=== PATIENT | female | born 1965 | race Caucasian/White ===

== ENCOUNTER 2018-09-28 16:51 | Emergency (ER) | payer MEDICARE, OTHER ==
[~2018-09-28] VITALS: Ht 149.9 cm; Wt 61.7 kg
[2018-09-28] MEDS ORDERED: ELIQUIS5 MG PO (17:21)
[2018-09-28] MEDS ORDERED: CARV25 PO (17:21)
[2018-09-28] MEDS ORDERED: CLOP75 PO (17:22)
[2018-09-28] MEDS ORDERED: BUME1 PO (17:22)
[2018-09-28] MEDS ORDERED: Cymbalta60 MG PO (17:22)
[2018-09-28] MEDS ORDERED: GABA300 PO (17:23)
[2018-09-28] MEDS ORDERED: Isosorbide Mono30 MG PO (17:25)
[2018-09-28] MEDS ORDERED: LISI20 PO (17:25)
[2018-09-28] MEDS ORDERED: MGO400 MG PO (17:26)
[2018-09-28] MEDS ORDERED: MEXI200 PO (17:26)
[2018-09-28] MEDS ORDERED: POTCHL20ER PO (17:26)
[2018-09-28] MEDS ORDERED: SENN187 PO (17:27)
[2018-09-28] MEDS ORDERED: Pravachol40 MG PO (17:27)
[2018-09-28 17:28] LABS: BASOPHILS ABSOLUTE AUTO 0.05 K/mm3 (0.00-0.23); BASOPHILS PERCENT AUTO 1 % (0-2); EOSINOPHILS PERCENT AUTO 2 % (0-6); Hematocrit 39.7 % (33.0-51.0); Hemoglobin 12.4 g/dL (11.5-16.0); IMMATURE GRAN ABSOLUTE AUTO 0.04 K/mm3 (0.00-0.10); IMMATURE GRAN PERCENT AUTO 0 % (0-1); LYMPHOCYTES ABSOLUTE AUTO 2.36 K/mm3 (0.84-5.20); LYMPHOCYTES PERCENT AUTO 21 % (21-46); MONOCYTES ABSOLUTE AUTO 1.12 K/mm3 (0.16-1.47); MONOCYTES PERCENT AUTO 10 % (4-13); Mean Corpuscular HGB Conc 31.2 g/dL (31.5-36.5); Mean Corpuscular Volume 93 fL (80-100); Mean Platelet Volume 9.3 fL (9.1-12.4); NEUTROPHILS ABSOLUTE AUTO 7.32 K/mm3 (1.96-9.15); NEUTROPHILS PERCENT AUTO 66 % (41-73); Platelet Count 348 K/mm3 (150-400); RDW Standard Deviation 43.9 fL (35.1-46.3); Red Blood Cell Count 4.28 M/mm3 (3.80-5.20); White Blood Cell Count 11.09 K/mm3 (4.00-11.30)
[2018-09-28] MEDS ORDERED: SPIR25 PO (17:28)
[2018-09-28] MEDS ORDERED: DIAZ5 PO (17:28)
[2018-09-28] MEDS ORDERED: ZIPR60 PO (17:28)
[2018-09-28] MEDS ORDERED: Xyzal5 MG (17:28)
[2018-09-28] MEDS ORDERED: VARE1 PO (17:29)
[2018-09-28 17:36] LABS: Source, Urine Clean Catch
[2018-09-28 17:44] LABS: Bilirubin, Urine Neg (Neg); Blood, Urine 5+ (Neg); Glucose Qualitative, Urine 3+ (Neg); Ketones, Urine Neg (Neg); Leukocyte Esterase, Urine 3+ (Neg); Nitrite, Urine Neg (Neg); Protein, Urine 1+ (Neg); Urobilinogen, Urine NORM (Normal)
[2018-09-28 17:46] LABS: Albumin, Blood 3.4 g/dL (3.4-5.0); Albumin/Globulin Ratio 0.9 (0.8-1.8); Bilirubin, Total 0.4 mg/dL (0.1-1.0); Bun/Creatinine Ratio 20.2 (12.0-20.0); Calcium, Blood 8.4 mg/dL (8.5-10.1); Creatinine, Blood 1.09 mg/dL (0.40-1.00); Globulin, Blood 3.8 g/dL (2.2-4.0); Potassium, Blood 4.6 mmol/L (3.5-5.5); Total Protein, Blood 7.2 g/dL (6.4-8.2)
[2018-09-28 18:04] LABS: Appearance, Urine Clear (Clear); Color, Urine Yellow (P-Yellow)
[2018-09-28 18:08] LABS: White Blood Cells, Urine TNTC /hpf (0-5)
[2018-09-28 18:09] LABS: Bacteria Many /hpf; Red Blood Cells, Urine 25-50 /hpf (0-2); Squamous Epithelial Cells Few /hpf (Few)
[2018-09-28] MEDS ORDERED: Pyridium100 MG PO (18:36)
[2018-09-28] MEDS ORDERED: CEPH500 PO (18:36)
== END 2018-09-28 19:05 | disposition home or self-care (01) ==
LOC: ER 16:51
PROVIDERS: Emergency Medicine
DX: N30.91 Cystitis, unspecified with hematuria (principal); Z79.899 Other long term (current) drug therapy; Z87.891 Personal history of nicotine dependence
CPT/HCPCS: 80053; 81001; 85025; 87077; 87086; 87186; 99284

== ENCOUNTER 2019-09-26 10:25 | Emergency (ER) | payer OTHER ==
[~2019-09-26] VITALS: Ht 149.9 cm; Wt 62.6 kg
[~2019-09-26 10:25] MED LIST: BUME1 PO; CARV25 PO; CEPH500 PO; CLOP75 PO; Cymbalta60 MG PO; DIAZ5 PO; ELIQUIS5 MG PO; GABA300 PO; Isosorbide Mono30 MG PO; LISI20 PO; MEXI200 PO; MGO400 MG PO; POTCHL20ER PO; Pravachol40 MG PO; Pyridium100 MG PO; SENN187 PO; SPIR25 PO; VARE1 PO; Xyzal5 MG; ZIPR60 PO
== END 2019-09-26 12:57 | disposition home or self-care (01) ==
LOC: ER 10:25
DX: H11.32 Conjunctival hemorrhage, left eye (principal); N17.9 Acute kidney failure, unspecified; Z79.899 Other long term (current) drug therapy
CPT/HCPCS: 99283

== ENCOUNTER 2020-04-22 18:25 | Observation (INO) | payer OTHER ==
[~2020-04-22] VITALS: Ht 149.9 cm; Wt 67.6 kg
[~2020-04-22 18:25] MED LIST changes: +AMOCLA875 PO; +AZIT250 PO; +XYZAL5 MG PO; -Xyzal5 MG
[2020-04-22 19:13] LABS: BASOPHILS ABSOLUTE AUTO 0.08 K/mm3 (0.00-0.23); BASOPHILS PERCENT AUTO 1 % (0-2); EOSINOPHILS ABSOLUTE AUTO 0.32 K/mm3 (0.00-0.68); EOSINOPHILS PERCENT AUTO 4 % (0-6); Hematocrit 44.7 % (33.0-51.0); Hemoglobin 13.8 g/dL (11.5-16.0); IMMATURE GRAN ABSOLUTE AUTO 0.02 K/mm3 (0.00-0.10); IMMATURE GRAN PERCENT AUTO 0 % (0-1); LYMPHOCYTES ABSOLUTE AUTO 2.33 K/mm3 (0.84-5.20); LYMPHOCYTES PERCENT AUTO 28 % (21-46); MONOCYTES ABSOLUTE AUTO 0.91 K/mm3 (0.16-1.47); MONOCYTES PERCENT AUTO 11 % (4-13); Mean Corpuscular HGB 27.7 pg (26.0-34.0); Mean Corpuscular HGB Conc 30.9 g/dL (31.5-36.5); Mean Corpuscular Volume 90 fL (80-100); Mean Platelet Volume 9.4 fL (9.1-12.4); NEUTROPHILS ABSOLUTE AUTO 4.69 K/mm3 (1.96-9.15); NEUTROPHILS PERCENT AUTO 56 % (41-73); Platelet Count 326 K/mm3 (150-400); RDW Coefficient Variation 13.7 % (11.7-14.2); RDW Standard Deviation 44.4 fL (35.1-46.3); Red Blood Cell Count 4.99 M/mm3 (3.80-5.20); White Blood Cell Count 8.35 K/mm3 (4.00-11.30)
[2020-04-22 19:34] LABS: Alanine Aminotransfer (ALT/SGP 32 U/L (12-78); Albumin, Blood 3.6 g/dL (3.4-5.0); Albumin/Globulin Ratio 0.8 (0.8-1.8); Alk Phos 115 U/L (50-136); Anion Gap 5 mmol/L (6-16); Aspartate Aminotrans (AST/SGOT 13 U/L (12-37); Bilirubin, Total 0.4 mg/dL (0.1-1.0); Blood Urea Nitrogen 17 mg/dL (8-24); Bun/Creatinine Ratio 20.3 (12.0-20.0); CO2, Blood 32 mmol/L (21-32); Calcium, Blood 8.8 mg/dL (8.5-10.1); Chloride, Blood 103 mmol/L (98-108); Creatinine, Blood 0.84 mg/dL (0.40-1.00); Globulin, Blood 4.3 g/dL (2.2-4.0); Glomerular Filtration Rate >60 (60-); Glucose, Blood 115 mg/dL (70-99); Potassium, Blood 3.6 mmol/L (3.5-5.5); Sodium, Blood 140 mmol/L (136-145); Total Protein, Blood 7.9 g/dL (6.4-8.2); Troponin I <0.015 ng/mL (0.000-0.040)
[2020-04-23] MEDS ORDERED: ASPI81CH PO (01:49)
[2020-04-23] MEDS ORDERED: K-Dur 20 meq T20 MEQ PO (01:50)
[2020-04-23] MEDS ORDERED: [UNRECOGNIZED DRUG - SUPPLY] (02:28)
[2020-04-23] MEDS ORDERED: TORSE20 PO (02:28)
[2020-04-23] MEDS ORDERED: CYMBALTA30 M1 PO (02:28)
[2020-04-23] MEDS ORDERED: PLAVIX75 MG PO (02:28)
[2020-04-23] MEDS ORDERED: ROPINIROLE HCL0.5 MG PO (02:29)
[2020-04-23] MEDS ORDERED: COREG25 MG PO (02:29)
[2020-04-23 03:22] LABS: BASOPHILS ABSOLUTE AUTO 0.04 K/mm3 (0.00-0.23); BASOPHILS PERCENT AUTO 0 % (0-2); EOSINOPHILS ABSOLUTE AUTO 0.19 K/mm3 (0.00-0.68); EOSINOPHILS PERCENT AUTO 2 % (0-6); Hematocrit 42.7 % (33.0-51.0); Hemoglobin 12.8 g/dL (11.5-16.0); IMMATURE GRAN ABSOLUTE AUTO 0.02 K/mm3 (0.00-0.10); IMMATURE GRAN PERCENT AUTO 0 % (0-1); LYMPHOCYTES ABSOLUTE AUTO 1.96 K/mm3 (0.84-5.20); LYMPHOCYTES PERCENT AUTO 22 % (21-46); MONOCYTES ABSOLUTE AUTO 0.93 K/mm3 (0.16-1.47); MONOCYTES PERCENT AUTO 10 % (4-13); Mean Corpuscular HGB 27.2 pg (26.0-34.0); Mean Corpuscular Volume 91 fL (80-100); Mean Platelet Volume 9.7 fL (9.1-12.4); NEUTROPHILS ABSOLUTE AUTO 5.83 K/mm3 (1.96-9.15); NEUTROPHILS PERCENT AUTO 65 % (41-73); Platelet Count 265 K/mm3 (150-400); RDW Coefficient Variation 13.7 % (11.7-14.2); RDW Standard Deviation 45.5 fL (35.1-46.3); Red Blood Cell Count 4.71 M/mm3 (3.80-5.20); White Blood Cell Count 8.97 K/mm3 (4.00-11.30)
[2020-04-23 03:46] LABS: Alanine Aminotransfer (ALT/SGP 29 U/L (12-78); Albumin, Blood 3.1 g/dL (3.4-5.0); Albumin/Globulin Ratio 0.8 (0.8-1.8); Alk Phos 107 U/L (50-136); Anion Gap 5 mmol/L (6-16); Aspartate Aminotrans (AST/SGOT 15 U/L (12-37); Bilirubin, Total 0.5 mg/dL (0.1-1.0); Blood Urea Nitrogen 20 mg/dL (8-24); CO2, Blood 31 mmol/L (21-32); CPK Creatine Kinase 79 U/L (26-193); Calcium, Blood 8.2 mg/dL (8.5-10.1); Chloride, Blood 103 mmol/L (98-108); Creatinine, Blood 0.91 mg/dL (0.40-1.00); Globulin, Blood 3.9 g/dL (2.2-4.0); Glomerular Filtration Rate >60 (60-); Glucose, Blood 332 mg/dL (70-99); Sodium, Blood 139 mmol/L (136-145); Troponin I <0.015 ng/mL (0.000-0.040)
[2020-04-23] MEDS ORDERED: Flonase 0.05% N16 GM (03:56)
[2020-04-23] MEDS ORDERED: NOVOLOG FL100 UNIT/3 SC (03:59)
[2020-04-23] MEDS ORDERED: BASAGLAR K100 UNIT/1 SC (04:01)
--- NOTE | 2020-04-23 05:24 | NUR ---
04/23/20 0515 PT AND DAUGHTER SLEEPING WELL. HEART MONITOR STABLE AT SR IN THE 70'S. LABWORK GOOD EXCEPT BLOOD SUGAR IN LOW 300'S. O2 AT 2LPM VIA N/C. ECHO ORDERED FOR TODAY. MEDICATED ONCE ON MEDICAL FLOOR FOR STERNAL DISCOMFORT WITH GOOD RELIEF.
--- NOTE | 2020-04-23 10:41 | NUR ---
BIVICD DEVICE INTEROGATTED PER DR CISNEROS WITH [employer] REP PRESENT. RESULTS REPORTED TO DR CISNEROS
[2020-04-23 11:28] LABS: CPK Creatine Kinase 68 U/L (26-193); Troponin I <0.015 ng/mL (0.000-0.040)
--- NOTE | 2020-04-23 11:56 | NUR ---
CALLED [facility] AND INFORMED OF NEW URGENT REPROGRAM PACER ORDER
[2020-04-23] MEDS ORDERED: DULO30 PO (14:46)
[2020-04-23] MEDS ORDERED: CYCL10 PO (14:47)
[2020-04-23] MEDS ORDERED: ATOR20 PO (14:47)
[2020-04-23] MEDS ORDERED: IBUP600 PO (14:48)
[2020-04-23] MEDS ORDERED: Norco 5-325 Ta1 EACH PO (14:48)
[2020-04-23] MEDS ORDERED: ENTRESTO 49 MG1 EACH PO (14:49)
--- NOTE | 2020-04-23 15:48 | NUR ---
ADMIT: 04/22/20 DISCHARGE: 04/23/20 DX: Pericardial effusion CC: cpeabody ABNER CALL: Patient is legally deaf. Please contact Abigail Kline (Daughter in [phone] or Obie Olmos (son)- RESIDENCE: home- alone family lives 1 mile away. CAREGIVER: Abigail Olmos (licha), Family Member, Ama, Sister, Family Member, Serge, daughter, Child, DX: CAD, CHF, HTN, Deaf, see list DME: Needs shower chair. CCM: Referral 2020 HOME HEALTH: not home bound, safely walking on her own. no wounds or nurse needed. SUMMARY: Admit: 04/22/20 Discharge 04/23/20 Cardiology signed off, Dr Mcgraw discharge home. s/w patient through interpuator. I met with Abigail, caregiver and Tali in room. They are having challenges with a deaf lighted alarm system in her home and do not know who to call. Asked them to text me a picture, I would try to help. Tali wanting a shower chair, will insurance cover? left message for [facility] to call me. If insurance will cover I will have pcp order. Discussed care coordination and reviewed transition of care call for Sunday or Sunday. Call Abigail for abner. Abigail drove her home and will metal pickling equipment operator new meds. cp
[2020-04-23 16:46] LABS: CHOL/HDL RATIO 4.1; Cholesterol 167 mg/dL (50-200); HDL Cholesterol 41 mg/dL (>39); LDL/HDL RATIO 2.5; Low Density Lipoprotein Chol 104 mg/dL (0-110); Triglycerides 111 mg/dL (30-160); Very Low Density Lipoprot Chol 22 mg/dL (6-32)
--- NOTE | 2020-04-23 16:52 | NUR ---
DISCHARGE SUMMARY BIANKA WENT HOME WITH DAUGHTER BRAD. MEDS FAXED TO PHARMACY. CALLED DR URBINA AND GOT VERBAL ORDER FOR PT TO HAVE MEXILETINE 150MG TID #90 3 REFILLS. WRITTEN SCRIPT FOR NORCO GIVEN TO PT AND PUT IN THEIR DISCHARGE PACKET, COPY IN CHART. PIV REMOVED. HAD LOW CBG EARLIER, TREATED WITH OJ AND DR URBINA CALLED. HE ORDERED PT BE ON HOME 'WHEEL' THAT IS A MIX OF WHAT LISPRO TO GIVE AT [facility] THAT IS A MIX OF SLIDING SCALE INSULIN WITH CORRECTION INSULIN. PACER INTERROGATED PRIOR TO DISCHARGE. DR CISNEROS SAW PT WITH ONLINE VISUAL SL LIMNOLOGY TEACHER. PAPERWORK GONE OVER THOROUGHLY WITH PT AND DAUGHTER IN LAW BIANKA
[2020-10-12] MEDS ORDERED: Amoxicillin500 MG PO (14:26)
[2020-10-12] MEDS ORDERED: Pyridium200 MG PO (14:26)
[2020-10-12] MEDS ORDERED: TERBINAFINE15 GM TOP (14:30)
== END 2020-04-23 16:33 | disposition home or self-care (01) ==
LOC: ER 18:25 → MEDS 18:26
PROVIDERS: Internal Medicine Cardiovascular Disease; Physician Assistant; ADMIT Internal Medicine
DX: I31.3 Pericardial effusion (noninflammatory) (principal); T82.199A Other mechanical complication of unspecified cardiac device, initial encounter; S20.219A Contusion of unspecified front wall of thorax, initial encounter; H90.5 Unspecified sensorineural hearing loss; I25.10 Atherosclerotic heart disease of native coronary artery without angina pectoris; I25.5 Ischemic cardiomyopathy; I48.91 Unspecified atrial fibrillation; E11.9 Type 2 diabetes mellitus without complications; E78.5 Hyperlipidemia, unspecified; F32.9 Major depressive disorder, single episode, unspecified; E66.9 Obesity, unspecified; I11.0 Hypertensive heart disease with heart failure; I50.22 Chronic systolic (congestive) heart failure; Z95.0 Presence of cardiac pacemaker; Z87.891 Personal history of nicotine dependence; Z79.01 Long term (current) use of anticoagulants; Z79.4 Long term (current) use of insulin
CPT/HCPCS: 36415; 71046; 80053; 80061; 82550; 82947; 83880; 84484; 85025; 93005; 93010; 93284; 93308; 93321; 96374; 96375; 96376; 99285-25; A9270; G0378; J1885; J2405; J3010

== ENCOUNTER → 2020-06-08 | Outpatient (CLI) | payer OTHER ==
[~2020-06-08] MED LIST changes: +ASPI81CH PO; +ATOR20 PO; +Amoxicillin500 MG PO; +BASAGLAR K100 UNIT/1 SC; +COREG25 MG PO; +CYCL10 PO; +CYMBALTA30 M1 PO; +DULO30 PO; +ENTRESTO 49 MG1 EACH PO; +Flonase 0.05% N16 GM; +IBUP600 PO; +K-Dur 20 meq T20 MEQ PO; +NOVOLOG FL100 UNIT/3 SC; +Norco 5-325 Ta1 EACH PO; +PLAVIX75 MG PO; +Pyridium200 MG PO; +ROPINIROLE HCL0.5 MG PO; +TERBINAFINE15 GM TOP; +TORSE20 PO; +[UNRECOGNIZED DRUG - SUPPLY]
[2020-06-08 10:43] LABS: BASOPHILS ABSOLUTE AUTO 0.06 K/mm3 (0.00-0.23); BASOPHILS PERCENT AUTO 1 % (0-2); EOSINOPHILS ABSOLUTE AUTO 0.21 K/mm3 (0.00-0.68); EOSINOPHILS PERCENT AUTO 3 % (0-6); Hematocrit 51.1 % (33.0-51.0); IMMATURE GRAN ABSOLUTE AUTO 0.02 K/mm3 (0.00-0.10); IMMATURE GRAN PERCENT AUTO 0 % (0-1); LYMPHOCYTES ABSOLUTE AUTO 2.17 K/mm3 (0.84-5.20); LYMPHOCYTES PERCENT AUTO 28 % (21-46); MONOCYTES ABSOLUTE AUTO 1.12 K/mm3 (0.16-1.47); MONOCYTES PERCENT AUTO 15 % (4-13); Mean Corpuscular HGB 27.7 pg (26.0-34.0); Mean Corpuscular HGB Conc 31.3 g/dL (31.5-36.5); Mean Corpuscular Volume 89 fL (80-100); Mean Platelet Volume 9.7 fL (9.1-12.4); NEUTROPHILS PERCENT AUTO 53 % (41-73); Platelet Count 331 K/mm3 (150-400); RDW Coefficient Variation 13.7 % (11.7-14.2); RDW Standard Deviation 44.3 fL (35.1-46.3); Red Blood Cell Count 5.77 M/mm3 (3.80-5.20); White Blood Cell Count 7.68 K/mm3 (4.00-11.30)
[2020-06-08 10:52] LABS: Bun/Creatinine Ratio 16.1 (12.0-20.0); Calcium, Blood 9.3 mg/dL (8.5-10.1); Creatinine, Blood 1.18 mg/dL (0.40-1.00); Potassium, Blood 3.9 mmol/L (3.5-5.5)
== END ==
LOC: PLD 10:35 → LAB SHORT 10:35
PROVIDERS: Physician Assistant
DX: R51.9 Headache, unspecified (principal); M79.10 Myalgia, unspecified site; R07.0 Pain in throat; R53.81 Other malaise
CPT/HCPCS: 36415; 80048; 85025

== ENCOUNTER → 2020-09-21 | Outpatient (CLI) | payer OTHER ==
[2020-09-21 11:47] LABS: Bun/Creatinine Ratio 7.4 (12.0-20.0); Calcium, Blood 8.5 mg/dL (8.5-10.1); Creatinine, Blood 1.22 mg/dL (0.40-1.00); Potassium, Blood 4.1 mmol/L (3.5-5.5)
== END ==
LOC: LAB SHORT 11:37
PROVIDERS: Chiropractor
DX: R73.9 Hyperglycemia, unspecified (principal)
CPT/HCPCS: 80048; 83036

== ENCOUNTER → 2020-09-21 | Outpatient (CLI) | payer OTHER | END | disposition home or self-care (01) | LOC: LAB SHORT 10:26 | DX: R30.9 Painful micturition, unspecified (principal) | CPT/HCPCS: 87086 ==

== ENCOUNTER 2020-10-12 10:29 | Emergency (ER) | payer OTHER | END 2020-10-12 15:10 | disposition home or self-care (01) | LOC: ER 10:29 | DX: N13.30 Unspecified hydronephrosis (principal); E11.9 Type 2 diabetes mellitus without complications; I50.9 Heart failure, unspecified; Z87.891 Personal history of nicotine dependence ==

== ENCOUNTER 2020-11-10 15:51 | Emergency (ER) | payer OTHER ==
[~2020-11-10] VITALS: Ht 149.9 cm; Wt 70.3 kg
[2020-11-10 16:37] LABS: BASOPHILS ABSOLUTE AUTO 0.03 K/mm3 (0.00-0.23); BASOPHILS PERCENT AUTO 0 % (0-2); EOSINOPHILS ABSOLUTE AUTO 0.05 K/mm3 (0.00-0.68); EOSINOPHILS PERCENT AUTO 1 % (0-6); Hematocrit 40.3 % (33.0-51.0); Hemoglobin 12.7 g/dL (11.5-16.0); IMMATURE GRAN ABSOLUTE AUTO 0.03 K/mm3 (0.00-0.10); IMMATURE GRAN PERCENT AUTO 0 % (0-1); LYMPHOCYTES PERCENT AUTO 13 % (21-46); MONOCYTES PERCENT AUTO 8 % (4-13); Mean Corpuscular HGB 27.9 pg (26.0-34.0); Mean Corpuscular HGB Conc 31.5 g/dL (31.5-36.5); Mean Corpuscular Volume 88 fL (80-100); Mean Platelet Volume 10.4 fL (9.1-12.4); NEUTROPHILS ABSOLUTE AUTO 6.82 K/mm3 (1.96-9.15); NEUTROPHILS PERCENT AUTO 78 % (41-73); Platelet Count 266 K/mm3 (150-400); RDW Coefficient Variation 13.1 % (11.7-14.2); RDW Standard Deviation 42.5 fL (35.1-46.3); Red Blood Cell Count 4.56 M/mm3 (3.80-5.20); White Blood Cell Count 8.73 K/mm3 (4.00-11.30)
[2020-11-10 16:55] LABS: Alanine Aminotransfer (ALT/SGP 24 U/L (12-78); Albumin, Blood 3.5 g/dL (3.4-5.0); Albumin/Globulin Ratio 0.9 (0.8-1.8); Alk Phos 89 U/L (50-136); Anion Gap 4 mmol/L (6-16); Aspartate Aminotrans (AST/SGOT 20 U/L (12-37); Bilirubin, Total 0.3 mg/dL (0.1-1.0); Blood Urea Nitrogen 7 mg/dL (8-24); Bun/Creatinine Ratio 8.6 (12.0-20.0); CO2, Blood 25 mmol/L (21-32); Calcium, Blood 8.8 mg/dL (8.5-10.1); Chloride, Blood 110 mmol/L (98-108); Creatinine, Blood 0.81 mg/dL (0.40-1.00); Globulin, Blood 3.8 g/dL (2.2-4.0); Glomerular Filtration Rate >60 (60-); Glucose, Blood 285 mg/dL (70-99); Potassium, Blood 4.7 mmol/L (3.5-5.5); Sodium, Blood 139 mmol/L (136-145); Total Protein, Blood 7.3 g/dL (6.4-8.2)
[2020-11-10 17:52] LABS: Source, Urine Clean Catch
[2020-11-10 18:02] LABS: Appearance, Urine Clear (Clear); Bilirubin, Urine Neg (Neg); Blood, Urine 4+ (Neg); Color, Urine Yellow (P-Yellow); Glucose Qualitative, Urine 4+ (Neg); Ketones, Urine 1+ (Neg); Leukocyte Esterase, Urine Neg (Neg); Nitrite, Urine Neg (Neg); Protein, Urine 3+ (Neg); Urobilinogen, Urine NORM (Normal)
[2020-11-10 18:13] LABS: Bacteria Mod /hpf; Squamous Epithelial Cells Mod /hpf (Few); White Blood Cells, Urine 0-2 /hpf (0-5)
[2020-11-10] MEDS ORDERED: GUAI600T33 PO (18:32)
== END 2020-11-10 19:17 | disposition home or self-care (01) ==
LOC: ER 15:51
PROVIDERS: Emergency Medicine
DX: E11.65 Type 2 diabetes mellitus with hyperglycemia (principal); J06.9 Acute upper respiratory infection, unspecified; I50.9 Heart failure, unspecified; N19 Unspecified kidney failure; Z79.4 Long term (current) use of insulin; Z87.891 Personal history of nicotine dependence
CPT/HCPCS: 36415; 71046; 80053; 81001; 82947; 85025; 87086; 99284-25; A9270

== ENCOUNTER → 2021-01-12 | Outpatient (CLI) | payer OTHER ==
[~2021-01-12] MED LIST changes: +GUAI600T33 PO
[2021-01-12 18:20] LABS: BASOPHILS ABSOLUTE AUTO 0.03 K/mm3 (0.00-0.23); BASOPHILS PERCENT AUTO 1 % (0-2); EOSINOPHILS PERCENT AUTO 2 % (0-6); Hematocrit 42.6 % (33.0-51.0); Hemoglobin 13.9 g/dL (11.5-16.0); IMMATURE GRAN ABSOLUTE AUTO 0.01 K/mm3 (0.00-0.10); IMMATURE GRAN PERCENT AUTO 0 % (0-1); LYMPHOCYTES ABSOLUTE AUTO 2.19 K/mm3 (0.84-5.20); LYMPHOCYTES PERCENT AUTO 34 % (21-46); MONOCYTES ABSOLUTE AUTO 0.51 K/mm3 (0.16-1.47); MONOCYTES PERCENT AUTO 8 % (4-13); Mean Corpuscular HGB 28.8 pg (26.0-34.0); Mean Corpuscular HGB Conc 32.6 g/dL (31.5-36.5); Mean Corpuscular Volume 88 fL (80-100); Mean Platelet Volume 10.1 fL (9.1-12.4); NEUTROPHILS ABSOLUTE AUTO 3.65 K/mm3 (1.96-9.15); NEUTROPHILS PERCENT AUTO 56 % (41-73); Platelet Count 273 K/mm3 (150-400); RDW Coefficient Variation 13.2 % (11.7-14.2); RDW Standard Deviation 42.8 fL (35.1-46.3); Red Blood Cell Count 4.82 M/mm3 (3.80-5.20); White Blood Cell Count 6.49 K/mm3 (4.00-11.30)
[2021-01-12 18:35] LABS: Albumin, Blood 3.9 g/dL (3.4-5.0); Albumin/Globulin Ratio 1.3 (0.8-1.8); Bilirubin, Total 0.3 mg/dL (0.1-1.0); Bun/Creatinine Ratio 9.4 (12.0-20.0); Calcium, Blood 8.3 mg/dL (8.5-10.1); Creatinine, Blood 1.27 mg/dL (0.40-1.00); Total Protein, Blood 6.9 g/dL (6.4-8.2)
== END | disposition home or self-care (01) ==
LOC: LAB SHORT 18:14
PROVIDERS: Physician Assistant
DX: E10.649 Type 1 diabetes mellitus with hypoglycemia without coma (principal); M79.10 Myalgia, unspecified site
CPT/HCPCS: 80053; 82550; 83036; 85025; 85651; 86140

== ENCOUNTER 2021-04-07 15:06 | Observation (INO) | payer OTHER ==
[~2021-04-07] VITALS: Ht 149.9 cm; Wt 65.3 kg
[2021-04-07] MEDS ORDERED: CLOP75 PO (16:06)
[2021-04-07] MEDS ORDERED: ELIQUIS5 M2 PO (16:07)
[2021-04-07] MEDS ORDERED: CARV25 PO (16:07)
[2021-04-07] MEDS ORDERED: GABA300 PO ×2 (16:12→16:13)
[2021-04-07 16:13] LABS: BASOPHILS ABSOLUTE AUTO 0.02 K/mm3 (0.00-0.23); BASOPHILS PERCENT AUTO 0 % (0-2); EOSINOPHILS ABSOLUTE AUTO 0.02 K/mm3 (0.00-0.68); EOSINOPHILS PERCENT AUTO 0 % (0-6); Hematocrit 35.4 % (33.0-51.0); Hemoglobin 11.2 g/dL (11.5-16.0); IMMATURE GRAN ABSOLUTE AUTO 0.03 K/mm3 (0.00-0.10); IMMATURE GRAN PERCENT AUTO 0 % (0-1); LYMPHOCYTES ABSOLUTE AUTO 1.09 K/mm3 (0.84-5.20); LYMPHOCYTES PERCENT AUTO 13 % (21-46); MONOCYTES PERCENT AUTO 7 % (4-13); Mean Corpuscular HGB 28.9 pg (26.0-34.0); Mean Corpuscular HGB Conc 31.6 g/dL (31.5-36.5); Mean Corpuscular Volume 92 fL (80-100); NEUTROPHILS ABSOLUTE AUTO 6.84 K/mm3 (1.96-9.15); NEUTROPHILS PERCENT AUTO 80 % (41-73); Platelet Count 254 K/mm3 (150-400); RDW Standard Deviation 43.3 fL (35.1-46.3); Red Blood Cell Count 3.87 M/mm3 (3.80-5.20)
[2021-04-07] MEDS ORDERED: Isosorbide Mono30 MG PO (16:13)
[2021-04-07] MEDS ORDERED: BUSPIRONE HCL5 M6 PO (16:15)
[2021-04-07] MEDS ORDERED: LEVOCETIRIZINE D5 MG PO (16:20)
[2021-04-07] MEDS ORDERED: POTCHL20ER PO (16:21)
[2021-04-07] MEDS ORDERED: MAGNESIUM OXID500 MG PO (16:21)
[2021-04-07] MEDS ORDERED: ZIPR40 PO (16:22)
[2021-04-07] MEDS ORDERED: SENNA LAXATIVE8.6 MG PO (16:22)
[2021-04-07] MEDS ORDERED: ATOR20 PO (16:23)
[2021-04-07] MEDS ORDERED: TORSE20 PO (16:23)
[2021-04-07] MEDS ORDERED: MEXI200 PO (16:24)
[2021-04-07] MEDS ORDERED: ENTRESTO 49 MG1 EACH PO (16:24)
[2021-04-07] MEDS ORDERED: BASAGLAR K100 UNIT/3 SC (16:25)
[2021-04-07] MEDS ORDERED: FIASP 100100 UNIT/3 SC (16:28)
[2021-04-07 16:29] LABS: International Normalized Ratio 1.14; Prothrombin Time Results 11.9 Sec (9.7-11.5)
[2021-04-07] MEDS ORDERED: Ventolin/Prove6.7 GM INH (16:29)
[2021-04-07] MEDS ORDERED: ALBU90OI INH (16:30)
[2021-04-07] MEDS ORDERED: FLUTICASONE-SA1 EAC9 INH (16:32)
[2021-04-07] MEDS ORDERED: FLUTICASONE PRO16 GM (16:33)
[2021-04-07 16:45] LABS: Alanine Aminotransfer (ALT/SGP 19 U/L (12-78); Albumin, Blood 2.5 g/dL (3.4-5.0); Albumin/Globulin Ratio 0.8 (0.8-1.8); Alk Phos 65 U/L (50-136); Anion Gap 5 mmol/L (6-16); Aspartate Aminotrans (AST/SGOT 16 U/L (12-37); Bilirubin, Total 0.3 mg/dL (0.1-1.0); Blood Urea Nitrogen 14 mg/dL (8-24); Bun/Creatinine Ratio 17.5 (12.0-20.0); CO2, Blood 27 mmol/L (21-32); Calcium, Blood 7.2 mg/dL (8.5-10.1); Chloride, Blood 107 mmol/L (98-108); Globulin, Blood 3.2 g/dL (2.2-4.0); Glomerular Filtration Rate >60 (60-); Glucose, Blood 416 mg/dL (70-99); Potassium, Blood 3.5 mmol/L (3.5-5.5); Sodium, Blood 139 mmol/L (136-145); Total Protein, Blood 5.7 g/dL (6.4-8.2); Troponin I 0.348 ng/mL (0.000-0.040)
[2021-04-07 16:58] LABS: Source, Urine Peds U Bag
[2021-04-07 17:07] LABS: Appearance, Urine Clear (Clear); Bilirubin, Urine Neg (Neg); Blood, Urine 1+ (Neg); Color, Urine Yellow (P-Yellow); Glucose Qualitative, Urine 4+ (Neg); Ketones, Urine Neg (Neg); Leukocyte Esterase, Urine Neg (Neg); Nitrite, Urine Neg (Neg); Protein, Urine 1+ (Neg); Urobilinogen, Urine NORM (Normal); pH, Urine 6.5 (5.0-8.0)
[2021-04-07 17:15] LABS: Bacteria Few /hpf; Squamous Epithelial Cells Rare /hpf (Few); White Blood Cells, Urine 0-2 /hpf (0-5)
[2021-04-07 21:26] LABS: Influenza A, PCR NEGATIVE (NEGATIVE); Influenza B, PCR NEGATIVE (NEGATIVE); Resp Syncytial Virus, PCR NEGATIVE (NEGATIVE); SARS-Cov-2 (COVID-19) PCR, MMC NEGATIVE (NEGATIVE)
[2021-04-08] MEDS ORDERED: ZOLP5 PO (00:59)
[2021-04-08] MEDS ORDERED: ROPI1 PO (01:00)
[2021-04-08 05:47] LABS: BASOPHILS ABSOLUTE AUTO 0.04 K/mm3 (0.00-0.23); BASOPHILS PERCENT AUTO 0 % (0-2); EOSINOPHILS ABSOLUTE AUTO 0.07 K/mm3 (0.00-0.68); EOSINOPHILS PERCENT AUTO 1 % (0-6); Hematocrit 42.3 % (33.0-51.0); Hemoglobin 13.2 g/dL (11.5-16.0); IMMATURE GRAN ABSOLUTE AUTO 0.05 K/mm3 (0.00-0.10); IMMATURE GRAN PERCENT AUTO 0 % (0-1); LYMPHOCYTES ABSOLUTE AUTO 2.74 K/mm3 (0.84-5.20); LYMPHOCYTES PERCENT AUTO 24 % (21-46); MONOCYTES ABSOLUTE AUTO 1.15 K/mm3 (0.16-1.47); MONOCYTES PERCENT AUTO 10 % (4-13); Mean Corpuscular HGB 28.6 pg (26.0-34.0); Mean Corpuscular HGB Conc 31.2 g/dL (31.5-36.5); Mean Corpuscular Volume 92 fL (80-100); Mean Platelet Volume 9.9 fL (9.1-12.4); NEUTROPHILS ABSOLUTE AUTO 7.54 K/mm3 (1.96-9.15); NEUTROPHILS PERCENT AUTO 65 % (41-73); Platelet Count 264 K/mm3 (150-400); RDW Standard Deviation 44.3 fL (35.1-46.3); Red Blood Cell Count 4.61 M/mm3 (3.80-5.20); White Blood Cell Count 11.59 K/mm3 (4.00-11.30)
[2021-04-08 06:22] LABS: Albumin, Blood 3.1 g/dL (3.4-5.0); Albumin/Globulin Ratio 0.9 (0.8-1.8); Bilirubin, Total 0.3 mg/dL (0.1-1.0); Bun/Creatinine Ratio 18.6 (12.0-20.0); Calcium, Blood 8.6 mg/dL (8.5-10.1); Creatinine, Blood 0.97 mg/dL (0.40-1.00); Globulin, Blood 3.4 g/dL (2.2-4.0); Magnesium, Blood 2.3 mg/dL (1.6-2.4); Potassium, Blood 3.8 mmol/L (3.5-5.5); Thyroid Stimulating Hormone 0.512 uIU/mL (0.360-4.800); Total Protein, Blood 6.5 g/dL (6.4-8.2)
[2021-04-08] MEDS ORDERED: DILT120 PO (18:46)
== END 2021-04-08 19:00 | disposition home or self-care (01) ==
LOC: ER 15:06 → ERHOLD 15:07
PROVIDERS: Emergency Medicine; Internal Medicine; ADMIT Internal Medicine
DX: I48.20 Chronic atrial fibrillation, unspecified (principal); R07.9 Chest pain, unspecified; E11.65 Type 2 diabetes mellitus with hyperglycemia; I25.10 Atherosclerotic heart disease of native coronary artery without angina pectoris; I11.0 Hypertensive heart disease with heart failure; I50.22 Chronic systolic (congestive) heart failure; E87.6 Hypokalemia; E83.42 Hypomagnesemia; E78.5 Hyperlipidemia, unspecified; H90.3 Sensorineural hearing loss, bilateral; J45.909 Unspecified asthma, uncomplicated; I25.5 Ischemic cardiomyopathy; I25.2 Old myocardial infarction; Z87.891 Personal history of nicotine dependence; Z95.5 Presence of coronary angioplasty implant and graft; Z95.810 Presence of automatic (implantable) cardiac defibrillator; Z79.4 Long term (current) use of insulin; Z79.01 Long term (current) use of anticoagulants; Z20.822 Contact with and (suspected) exposure to COVID-19
CPT/HCPCS: 0241U; 36415; 71045; 80053; 81001; 82947; 83735; 83880; 84443; 84484; 85025; 85610; 93005; 93010; 93296; 96374; 96376; 99285-25; A9270; C8929; J1815; J1940; Q9957

== ENCOUNTER 2021-04-12 17:47 | Emergency (ER) | payer OTHER ==
[~2021-04-12] VITALS: Ht 160 cm; Wt 74.8 kg
[~2021-04-12 17:47] MED LIST changes: +ALBU90OI INH; +BASAGLAR K100 UNIT/3 SC; +BUSPIRONE HCL5 M6 PO; +DILT120 PO; +ELIQUIS5 M2 PO; +FIASP 100100 UNIT/3 SC; +FLUTICASONE PRO16 GM; +FLUTICASONE-SA1 EAC9 INH; +LEVOCETIRIZINE D5 MG PO; +MAGNESIUM OXID500 MG PO; +ROPI1 PO; +SENNA LAXATIVE8.6 MG PO; +Ventolin/Prove6.7 GM INH; +ZIPR40 PO; +ZOLP5 PO
[2021-04-12 20:42] LABS: BASOPHILS ABSOLUTE AUTO 0.03 K/mm3 (0.00-0.23); BASOPHILS PERCENT AUTO 1 % (0-2); EOSINOPHILS ABSOLUTE AUTO 0.06 K/mm3 (0.00-0.68); EOSINOPHILS PERCENT AUTO 1 % (0-6); Hematocrit 42.6 % (33.0-51.0); Hemoglobin 13.1 g/dL (11.5-16.0); IMMATURE GRAN ABSOLUTE AUTO 0.02 K/mm3 (0.00-0.10); IMMATURE GRAN PERCENT AUTO 0 % (0-1); LYMPHOCYTES ABSOLUTE AUTO 1.33 K/mm3 (0.84-5.20); LYMPHOCYTES PERCENT AUTO 21 % (21-46); MONOCYTES ABSOLUTE AUTO 0.65 K/mm3 (0.16-1.47); MONOCYTES PERCENT AUTO 11 % (4-13); Mean Corpuscular HGB 28.1 pg (26.0-34.0); Mean Corpuscular HGB Conc 30.8 g/dL (31.5-36.5); Mean Corpuscular Volume 91 fL (80-100); Mean Platelet Volume 9.7 fL (9.1-12.4); NEUTROPHILS ABSOLUTE AUTO 4.13 K/mm3 (1.96-9.15); NEUTROPHILS PERCENT AUTO 66 % (41-73); Platelet Count 323 K/mm3 (150-400); RDW Coefficient Variation 12.9 % (11.7-14.2); RDW Standard Deviation 43.2 fL (35.1-46.3); Red Blood Cell Count 4.66 M/mm3 (3.80-5.20); White Blood Cell Count 6.22 K/mm3 (4.00-11.30)
[2021-04-12 21:06] LABS: Bun/Creatinine Ratio 10.7 (12.0-20.0); Calcium, Blood 8.8 mg/dL (8.5-10.1); Creatinine, Blood 1.03 mg/dL (0.40-1.00); Potassium, Blood 3.5 mmol/L (3.5-5.5); Troponin I 0.03 ng/mL (0.000-0.040)
== END 2021-04-13 00:20 | disposition home or self-care (01) ==
LOC: ER 17:47
PROVIDERS: Student in an Organized Health Care Education/Training Program
DX: I11.0 Hypertensive heart disease with heart failure (principal); I50.20 Unspecified systolic (congestive) heart failure; I48.91 Unspecified atrial fibrillation; E11.9 Type 2 diabetes mellitus without complications; I25.2 Old myocardial infarction; E78.00 Pure hypercholesterolemia, unspecified; Z79.899 Other long term (current) drug therapy
CPT/HCPCS: 36415; 71045; 71275; 80048; 82947; 84484; 85025; 85379; 93005; 93010; A9270; Q9967

== ENCOUNTER → 2021-06-21 | Outpatient (CLI) | payer OTHER | END | disposition home or self-care (01) | LOC: LAB SHORT 10:06 → LAB 10:06 | DX: R30.9 Painful micturition, unspecified (principal) | CPT/HCPCS: 87086 ==

== ENCOUNTER → 2021-07-06 | Outpatient (CLI) | payer OTHER ==
[2021-07-07 10:19] LABS: Candida species (DNA Probe) Negative (NEGATIVE); G. vaginalis (DNA Probe) Positive (NEGATIVE); T. vaginalis (DNA Probe) Negative (NEGATIVE)
[2021-07-07 13:11] LABS: HPV 16 Negative (Negative); HPV 18 Negative (Negative); HPV OTHER HR TYPES Negative (Negative)
== END | disposition home or self-care (01) ==
LOC: LAB 17:16 → LAB SHORT 17:16
PROVIDERS: Advanced Practice Midwife
DX: Z01.419 Encounter for gynecological examination (general) (routine) without abnormal findings (principal); N76.0 Acute vaginitis
CPT/HCPCS: 87480; 87510; 87624; 87660; G0123

== ENCOUNTER → 2021-07-11 | Outpatient (CLI) | payer OTHER ==
[2021-07-11 14:01] LABS: Source, Urine Clean Catch
[2021-07-11 15:18] LABS: Appearance, Urine Clear (Clear); Bilirubin, Urine Neg (Neg); Blood, Urine Neg (Neg); Color, Urine Yellow (P-Yellow); Glucose Qualitative, Urine Neg (Neg); Ketones, Urine Neg (Neg); Leukocyte Esterase, Urine 2+ (Neg); Nitrite, Urine Neg (Neg); Protein, Urine Neg (Neg); Urobilinogen, Urine NORM (Normal)
[2021-07-11 15:40] LABS: Bacteria Few /hpf; Red Blood Cells, Urine 0-2 /hpf (0-2); Squamous Epithelial Cells Mod /hpf (Few)
== END | disposition home or self-care (01) ==
LOC: LAB SHORT 13:57
PROVIDERS: Advanced Practice Midwife
DX: R39.15 Urgency of urination (principal)
CPT/HCPCS: 81001

== ENCOUNTER → 2021-08-05 | Outpatient (CLI) | payer OTHER | END | disposition home or self-care (01) | LOC: LAB 14:54 → LAB SHORT 14:54 | DX: R30.0 Dysuria (principal) | CPT/HCPCS: 87086 ==

== ENCOUNTER 2022-01-18 13:32 | Emergency (ER) | payer OTHER ==
[~2022-01-18] VITALS: Ht 157.5 cm; Wt 61.2 kg
[~2022-01-18 13:32] MED LIST changes: +BENZ100A PO
[2022-01-18] MEDS ORDERED: Norco 5-325 Ta1 EACH PO (17:50)
== END 2022-01-18 18:04 | disposition home or self-care (01) ==
LOC: ER 13:32
DX: S01.512A Laceration without foreign body of oral cavity, initial encounter (principal); S00.83XA Contusion of other part of head, initial encounter; W10.9XXA Fall (on) (from) unspecified stairs and steps, initial encounter; I50.20 Unspecified systolic (congestive) heart failure; I48.91 Unspecified atrial fibrillation; E11.9 Type 2 diabetes mellitus without complications; I25.10 Atherosclerotic heart disease of native coronary artery without angina pectoris; E78.00 Pure hypercholesterolemia, unspecified; Z88.4 Allergy status to anesthetic agent; Z79.899 Other long term (current) drug therapy; Z79.4 Long term (current) use of insulin; Z79.01 Long term (current) use of anticoagulants; Z87.891 Personal history of nicotine dependence
CPT/HCPCS: 70450; 70486; 71045; 73070; 73560-LT; 82947; A9270; J1815

== ENCOUNTER 2022-02-09 20:15 | Emergency (ER) | payer OTHER ==
[~2022-02-09] VITALS: Ht 149.9 cm; Wt 61.2 kg
[2022-02-09 21:52] LABS: BASOPHILS ABSOLUTE AUTO 0.04 K/mm3 (0.00-0.23); BASOPHILS PERCENT AUTO 1 % (0-2); EOSINOPHILS ABSOLUTE AUTO 0.18 K/mm3 (0.00-0.68); EOSINOPHILS PERCENT AUTO 2 % (0-6); Hematocrit 40.9 % (33.0-51.0); Hemoglobin 13.2 g/dL (11.5-16.0); IMMATURE GRAN ABSOLUTE AUTO 0.01 K/mm3 (0.00-0.10); IMMATURE GRAN PERCENT AUTO 0 % (0-1); LYMPHOCYTES PERCENT AUTO 27 % (21-46); MONOCYTES ABSOLUTE AUTO 0.97 K/mm3 (0.16-1.47); MONOCYTES PERCENT AUTO 13 % (4-13); Mean Corpuscular HGB 28.4 pg (26.0-34.0); Mean Corpuscular HGB Conc 32.3 g/dL (31.5-36.5); Mean Corpuscular Volume 88 fL (80-100); Mean Platelet Volume 9.8 fL (9.1-12.4); NEUTROPHILS ABSOLUTE AUTO 4.28 K/mm3 (1.96-9.15); NEUTROPHILS PERCENT AUTO 57 % (41-73); Platelet Count 260 K/mm3 (150-400); RDW Coefficient Variation 13.5 % (11.7-14.2); RDW Standard Deviation 43.7 fL (35.1-46.3); Red Blood Cell Count 4.65 M/mm3 (3.80-5.20); White Blood Cell Count 7.48 K/mm3 (4.00-11.30)
[2022-02-09 22:04] LABS: Albumin, Blood 3.5 g/dL (3.4-5.0); Bilirubin, Total 0.3 mg/dL (0.1-1.0); Bun/Creatinine Ratio 7.3 (12.0-20.0); Calcium, Blood 8.5 mg/dL (8.5-10.1); Creatinine, Blood 1.09 mg/dL (0.40-1.00); Globulin, Blood 3.6 g/dL (2.2-4.0); Total Protein, Blood 7.1 g/dL (6.4-8.2)
[2022-02-09 22:09] LABS: Magnesium, Blood 2.1 mg/dL (1.6-2.4)
[2022-02-09 23:04] LABS: Thyroid Stimulating Hormone 0.999 uIU/mL (0.360-4.800)
[2022-02-10 01:03] LABS: Influenza A, PCR NEGATIVE (NEGATIVE); Influenza B, PCR NEGATIVE (NEGATIVE); Resp Syncytial Virus, PCR NEGATIVE (NEGATIVE); SARS-Cov-2 (COVID-19) PCR, MMC NEGATIVE (NEGATIVE)
[2022-02-10] MEDS ORDERED: BENZ100A PO (01:07)
== END 2022-02-10 02:31 | disposition home or self-care (01) ==
LOC: ER 20:15
PROVIDERS: Emergency Medicine; Student in an Organized Health Care Education/Training Program
DX: R07.9 Chest pain, unspecified (principal); R53.1 Weakness; R05.9 Cough, unspecified; I50.20 Unspecified systolic (congestive) heart failure; I48.91 Unspecified atrial fibrillation; E11.9 Type 2 diabetes mellitus without complications; I25.10 Atherosclerotic heart disease of native coronary artery without angina pectoris; I25.2 Old myocardial infarction; Z20.822 Contact with and (suspected) exposure to COVID-19; Z88.8 Allergy status to other drugs, medicaments and biological substances; Z79.899 Other long term (current) drug therapy; Z79.4 Long term (current) use of insulin; Z79.02 Long term (current) use of antithrombotics/antiplatelets; Z79.01 Long term (current) use of anticoagulants
CPT/HCPCS: 0241U; 36415; 71046; 80053; 83735; 84443; 84484; 85025; 93005; 93010

== ENCOUNTER → 2022-03-21 | Emergency (ER) | payer OTHER ==
[~2022-03-21] VITALS: Ht 160 cm; Wt 81.7 kg
[~2022-03-21] MED LIST changes: +BUSP5 PO; +SERT100 PO; +Tessalon200 MG PO
[2022-03-21 20:08] LABS: BASOPHILS ABSOLUTE AUTO 0.03 K/mm3 (0.00-0.23); BASOPHILS PERCENT AUTO 1 % (0-2); EOSINOPHILS ABSOLUTE AUTO 0.15 K/mm3 (0.00-0.68); EOSINOPHILS PERCENT AUTO 2 % (0-6); Hematocrit 40.1 % (33.0-51.0); Hemoglobin 12.6 g/dL (11.5-16.0); IMMATURE GRAN ABSOLUTE AUTO 0.01 K/mm3 (0.00-0.10); IMMATURE GRAN PERCENT AUTO 0 % (0-1); LYMPHOCYTES ABSOLUTE AUTO 1.79 K/mm3 (0.84-5.20); LYMPHOCYTES PERCENT AUTO 27 % (21-46); MONOCYTES ABSOLUTE AUTO 0.83 K/mm3 (0.16-1.47); MONOCYTES PERCENT AUTO 13 % (4-13); Mean Corpuscular HGB 28.4 pg (26.0-34.0); Mean Corpuscular HGB Conc 31.4 g/dL (31.5-36.5); Mean Corpuscular Volume 90 fL (80-100); Mean Platelet Volume 9.1 fL (9.1-12.4); NEUTROPHILS ABSOLUTE AUTO 3.77 K/mm3 (1.96-9.15); NEUTROPHILS PERCENT AUTO 57 % (41-73); Platelet Count 289 K/mm3 (150-400); RDW Coefficient Variation 13.7 % (11.7-14.2); RDW Standard Deviation 45.7 fL (35.1-46.3); Red Blood Cell Count 4.44 M/mm3 (3.80-5.20); White Blood Cell Count 6.58 K/mm3 (4.00-11.30)
[2022-03-21 20:22] LABS: Albumin, Blood 3.5 g/dL (3.4-5.0); Albumin/Globulin Ratio 1.1 (0.8-1.8); Bilirubin, Total 0.3 mg/dL (0.1-1.0); Bun/Creatinine Ratio 10.9 (12.0-20.0); Calcium, Blood 8.4 mg/dL (8.5-10.1); Creatinine, Blood 0.92 mg/dL (0.40-1.00); Globulin, Blood 3.2 g/dL (2.2-4.0); Potassium, Blood 4.6 mmol/L (3.5-5.5); Total Protein, Blood 6.7 g/dL (6.4-8.2)
[2022-03-21 20:54] LABS: Influenza A, PCR NEGATIVE (NEGATIVE); Influenza B, PCR NEGATIVE (NEGATIVE); Resp Syncytial Virus, PCR NEGATIVE (NEGATIVE); SARS-Cov-2 (COVID-19) PCR, MMC NEGATIVE (NEGATIVE)
== END ==
LOC: ER 19:25
PROVIDERS: Emergency Medicine
DX: J20.9 Acute bronchitis, unspecified (principal); H66.92 Otitis media, unspecified, left ear; E11.9 Type 2 diabetes mellitus without complications; I11.0 Hypertensive heart disease with heart failure; I50.20 Unspecified systolic (congestive) heart failure; I25.10 Atherosclerotic heart disease of native coronary artery without angina pectoris; I25.2 Old myocardial infarction; Z88.8 Allergy status to other drugs, medicaments and biological substances; Z79.4 Long term (current) use of insulin; Z79.899 Other long term (current) drug therapy; Z79.01 Long term (current) use of anticoagulants; Z95.5 Presence of coronary angioplasty implant and graft; Z87.891 Personal history of nicotine dependence; Z20.822 Contact with and (suspected) exposure to COVID-19
CPT/HCPCS: 0241U; 36415; 71045; 80053; 84484; 85025; 93005; 93010; A9270

== ENCOUNTER 2022-03-29 12:56 | Emergency (ER) | payer OTHER ==
[~2022-03-29] VITALS: Ht 149.9 cm; Wt 54.4 kg
== END 2022-03-29 15:43 | disposition home or self-care (01) ==
LOC: ER 12:56
DX: S06.0X0A Concussion without loss of consciousness, initial encounter (principal); S63.91XA Sprain of unspecified part of right wrist and hand, initial encounter; I48.91 Unspecified atrial fibrillation; E11.9 Type 2 diabetes mellitus without complications; I25.10 Atherosclerotic heart disease of native coronary artery without angina pectoris; I25.2 Old myocardial infarction; E78.00 Pure hypercholesterolemia, unspecified; Z91.048 Other nonmedicinal substance allergy status; Z79.899 Other long term (current) drug therapy; Z79.4 Long term (current) use of insulin; W18.30XA Fall on same level, unspecified, initial encounter
CPT/HCPCS: 70450; 73130; J1885

== ENCOUNTER → 2022-04-18 | Outpatient (CLI) | payer OTHER ==
[2022-04-18 15:58] LABS: Magnesium, Blood 2.3 mg/dL (1.6-2.4)
[2022-04-18 16:16] LABS: BASOPHILS ABSOLUTE AUTO 0.05 K/mm3 (0.00-0.23); BASOPHILS PERCENT AUTO 1 % (0-2); EOSINOPHILS PERCENT AUTO 3 % (0-6); Hematocrit 43.5 % (33.0-51.0); Hemoglobin 13.6 g/dL (11.5-16.0); IMMATURE GRAN ABSOLUTE AUTO 0.01 K/mm3 (0.00-0.10); IMMATURE GRAN PERCENT AUTO 0 % (0-1); LYMPHOCYTES ABSOLUTE AUTO 1.79 K/mm3 (0.84-5.20); LYMPHOCYTES PERCENT AUTO 30 % (21-46); MONOCYTES ABSOLUTE AUTO 0.81 K/mm3 (0.16-1.47); MONOCYTES PERCENT AUTO 14 % (4-13); Mean Corpuscular HGB 28.3 pg (26.0-34.0); Mean Corpuscular HGB Conc 31.3 g/dL (31.5-36.5); Mean Corpuscular Volume 91 fL (80-100); Mean Platelet Volume 9.6 fL (9.1-12.4); NEUTROPHILS ABSOLUTE AUTO 3.06 K/mm3 (1.96-9.15); NEUTROPHILS PERCENT AUTO 52 % (41-73); Platelet Count 325 K/mm3 (150-400); RDW Coefficient Variation 13.8 % (11.7-14.2); RDW Standard Deviation 46.4 fL (35.1-46.3); White Blood Cell Count 5.92 K/mm3 (4.00-11.30)
[2022-04-18 16:27] LABS: Albumin, Blood 3.7 g/dL (3.4-5.0); Albumin/Globulin Ratio 1.1 (0.8-1.8); Bilirubin, Total 0.3 mg/dL (0.1-1.0); Bun/Creatinine Ratio 11.5 (12.0-20.0); Creatinine, Blood 0.95 mg/dL (0.40-1.00); Globulin, Blood 3.3 g/dL (2.2-4.0); Potassium, Blood 3.8 mmol/L (3.5-5.5)
== END | disposition home or self-care (01) ==
LOC: LAB SHORT 10:20
PROVIDERS: Physician Assistant
DX: I11.0 Hypertensive heart disease with heart failure (principal); I50.9 Heart failure, unspecified; E83.42 Hypomagnesemia
CPT/HCPCS: 80053; 83735; 85025

== ENCOUNTER 2022-07-22 15:58 | Emergency (ER) | payer OTHER ==
[~2022-07-22] VITALS: Ht 160 cm; Wt 63.5 kg
[2022-07-22 17:32] LABS: Albumin, Blood 4.5 g/dL (3.4-5.0); Albumin/Globulin Ratio 1.1 (0.8-1.8); Bilirubin, Total 0.4 mg/dL (0.1-1.0); Bun/Creatinine Ratio 8.8 (12.0-20.0); Calcium, Blood 9.1 mg/dL (8.5-10.1); Creatinine, Blood 0.79 mg/dL (0.40-1.00); Globulin, Blood 4.1 g/dL (2.2-4.0); Potassium, Blood 3.8 mmol/L (3.5-5.5); Total Protein, Blood 8.6 g/dL (6.4-8.2)
[2022-07-22 18:08] LABS: BASOPHILS ABSOLUTE AUTO 0.04 K/mm3 (0.00-0.23); BASOPHILS PERCENT AUTO 1 % (0-2); EOSINOPHILS PERCENT AUTO 1 % (0-6); Hematocrit 41.7 % (33.0-51.0); Hemoglobin 13.1 g/dL (11.5-16.0); IMMATURE GRAN ABSOLUTE AUTO 0.01 K/mm3 (0.00-0.10); IMMATURE GRAN PERCENT AUTO 0 % (0-1); LYMPHOCYTES ABSOLUTE AUTO 1.63 K/mm3 (0.84-5.20); LYMPHOCYTES PERCENT AUTO 21 % (21-46); MONOCYTES PERCENT AUTO 9 % (4-13); Mean Corpuscular HGB 28.4 pg (26.0-34.0); Mean Corpuscular HGB Conc 31.4 g/dL (31.5-36.5); Mean Corpuscular Volume 91 fL (80-100); Mean Platelet Volume 9.5 fL (9.1-12.4); NEUTROPHILS ABSOLUTE AUTO 5.27 K/mm3 (1.96-9.15); NEUTROPHILS PERCENT AUTO 68 % (41-73); Platelet Count 226 K/mm3 (150-400); RDW Coefficient Variation 13.8 % (11.7-14.2); Red Blood Cell Count 4.61 M/mm3 (3.80-5.20); White Blood Cell Count 7.75 K/mm3 (4.00-11.30)
[2022-07-22 19:00] VITALS: BP 173/91
== END 2022-07-22 20:47 | disposition home or self-care (01) ==
LOC: ER 15:58
PROVIDERS: Student in an Organized Health Care Education/Training Program
DX: T82.897A Other specified complication of cardiac prosthetic devices, implants and grafts, initial encounter (principal); I47.20 Ventricular tachycardia, unspecified; Z87.891 Personal history of nicotine dependence; Z79.899 Other long term (current) drug therapy; Z88.8 Allergy status to other drugs, medicaments and biological substances; Z79.4 Long term (current) use of insulin
CPT/HCPCS: 36415; 71046; 80053; 84484; 85025; 93005; 93010; 99285-25

== ENCOUNTER 2022-07-30 04:56 | Inpatient (IN) | payer OTHER ==
[~2022-07-30] VITALS: Ht 157.5 cm; Wt 58.1 kg
[2022-07-30] MEDS ORDERED: BUSP5 PO (05:36)
[2022-07-30] MEDS ORDERED: ASPI81CH PO (05:37)
[2022-07-30] MEDS ORDERED: BUME2 PO (05:39)
[2022-07-30] MEDS ORDERED: Ginger250 MG PO (05:39)
[2022-07-30] MEDS ORDERED: FISH OIL-VIT D1 EACH PO (05:40)
[2022-07-30] MEDS ORDERED: Chantix1 MG PO (05:41)
[2022-07-30] MEDS ORDERED: ALBU2.5V5 INH (05:41)
[2022-07-30 06:06] LABS: BASOPHILS ABSOLUTE AUTO 0.05 K/mm3 (0.00-0.23); BASOPHILS PERCENT AUTO 1 % (0-2); EOSINOPHILS ABSOLUTE AUTO 0.16 K/mm3 (0.00-0.68); EOSINOPHILS PERCENT AUTO 2 % (0-6); Hematocrit 39.9 % (33.0-51.0); Hemoglobin 12.5 g/dL (11.5-16.0); IMMATURE GRAN ABSOLUTE AUTO 0.04 K/mm3 (0.00-0.10); IMMATURE GRAN PERCENT AUTO 0 % (0-1); LYMPHOCYTES ABSOLUTE AUTO 1.39 K/mm3 (0.84-5.20); LYMPHOCYTES PERCENT AUTO 13 % (21-46); MONOCYTES ABSOLUTE AUTO 1.17 K/mm3 (0.16-1.47); MONOCYTES PERCENT AUTO 11 % (4-13); Mean Corpuscular HGB 28.5 pg (26.0-34.0); Mean Corpuscular HGB Conc 31.3 g/dL (31.5-36.5); Mean Corpuscular Volume 91 fL (80-100); Mean Platelet Volume 9.9 fL (9.1-12.4); NEUTROPHILS ABSOLUTE AUTO 7.59 K/mm3 (1.96-9.15); NEUTROPHILS PERCENT AUTO 73 % (41-73); Platelet Count 254 K/mm3 (150-400); RDW Coefficient Variation 14.1 % (11.7-14.2); RDW Standard Deviation 47.3 fL (35.1-46.3); Red Blood Cell Count 4.38 M/mm3 (3.80-5.20)
[2022-07-30 06:22] LABS: Albumin, Blood 3.5 g/dL (3.4-5.0); Bilirubin, Total 0.6 mg/dL (0.1-1.0); Bun/Creatinine Ratio 11.1 (12.0-20.0); Calcium, Blood 8.4 mg/dL (8.5-10.1); Creatinine, Blood 0.63 mg/dL (0.40-1.00); Globulin, Blood 3.5 g/dL (2.2-4.0); Potassium, Blood 4.1 mmol/L (3.5-5.5)
[2022-07-30 07:46] LABS: Influenza A, PCR NEGATIVE (NEGATIVE); Influenza B, PCR NEGATIVE (NEGATIVE); Resp Syncytial Virus, PCR NEGATIVE (NEGATIVE); SARS-Cov-2 (COVID-19) PCR, MMC NEGATIVE (NEGATIVE)
[2022-07-30 11:21] VITALS: BP 125/81
[2022-07-30 14:46] VITALS: BP 147/111
[2022-07-30 16:44] VITALS: BP 162/93
--- NOTE | 2022-07-30 19:39 | NUR ---
LATE ENTRY/ER ADMIT 1057: RECEIVED REPORT FROM AYLIN CRACK OFF PERSON. 1115: RECEIVED PT FROM ER VIA GURCHRISTIAN, PT PLACED SELF IN BED, MADE COMFORTABLE,ORIENTED TO ROOM AND UNIT ROUTINE. BARREL RAISER COMPUTER BROUGHT TO ROOM, HOWEVER IT WOULD NOT WORK TO CONNECT TO BARREL RAISER. [facility] TO OBTAIN A WORKING BARREL RAISER COMPUTER. MEANWHILE, PT BECAME VISIBLY UPSET, LOUDLY GRUNTING AND THROWING OBJECTS IN THE ROOM UNTIL BARREL RAISER WAS OBTAINED. ONCE BARREL RAISER WAS OBTAINED PT REQUESTED TOOTHBRUSH, TOOTHPASTE, COMB, WASH CLOTHS, FOOD FOR DINNER AND WANTED HER MEDICATIONS. PT'S BP WAS ELEVATED AND SHE C/O PAIN, PLACED CALL TO MD ORDERS RECEIVED. MED REC DONE. ADMIT DONE. HYDRALAZINE FOR BP WAS GIVEN MD ORDERED WITH GOOD EFFECT ON PT'S BP. (SEE VITALS). PT HAS A DEXCOM CGM & DEXCOM SALES MARKETING MANAGER. REPORT GIVEN TO NOC NURSE.
[2022-07-30 20:21] VITALS: BP 168/93
[2022-07-30 21:56] VITALS: BP 146/74
[2022-07-31] VITALS (8 sets, daily range): BP systolic 142–162; BP diastolic 88–109
[2022-07-31 05:01] LABS: BASOPHILS ABSOLUTE AUTO 0.04 K/mm3 (0.00-0.23); BASOPHILS PERCENT AUTO 1 % (0-2); EOSINOPHILS ABSOLUTE AUTO 0.09 K/mm3 (0.00-0.68); EOSINOPHILS PERCENT AUTO 1 % (0-6); Hematocrit 38.9 % (33.0-51.0); Hemoglobin 12.3 g/dL (11.5-16.0); IMMATURE GRAN ABSOLUTE AUTO 0.02 K/mm3 (0.00-0.10); IMMATURE GRAN PERCENT AUTO 0 % (0-1); LYMPHOCYTES ABSOLUTE AUTO 1.51 K/mm3 (0.84-5.20); LYMPHOCYTES PERCENT AUTO 21 % (21-46); MONOCYTES ABSOLUTE AUTO 1.06 K/mm3 (0.16-1.47); MONOCYTES PERCENT AUTO 14 % (4-13); Mean Corpuscular HGB 28.2 pg (26.0-34.0); Mean Corpuscular HGB Conc 31.6 g/dL (31.5-36.5); Mean Corpuscular Volume 89 fL (80-100); Mean Platelet Volume 9.5 fL (9.1-12.4); NEUTROPHILS ABSOLUTE AUTO 4.66 K/mm3 (1.96-9.15); NEUTROPHILS PERCENT AUTO 63 % (41-73); Platelet Count 260 K/mm3 (150-400); RDW Coefficient Variation 14.2 % (11.7-14.2); RDW Standard Deviation 45.7 fL (35.1-46.3); Red Blood Cell Count 4.36 M/mm3 (3.80-5.20); White Blood Cell Count 7.38 K/mm3 (4.00-11.30)
[2022-07-31 05:24] LABS: Albumin, Blood 3.2 g/dL (3.4-5.0); Bilirubin, Total 0.7 mg/dL (0.1-1.0); Bun/Creatinine Ratio 10.9 (12.0-20.0); Calcium, Blood 8.5 mg/dL (8.5-10.1); Creatinine, Blood 0.55 mg/dL (0.40-1.00); Globulin, Blood 3.3 g/dL (2.2-4.0); Magnesium, Blood 2.1 mg/dL (1.6-2.4); Potassium, Blood 3.4 mmol/L (3.5-5.5); Total Protein, Blood 6.5 g/dL (6.4-8.2)
--- NOTE | 2022-07-31 05:52 | NUR ---
SUMMARY: PATIENT IRRITABLE THROUGHOUT NIGHT. DIAMOND CUTTER LAPTOP AT BEDSIDE. USED NEEDED FOR COMMUNICATION. PATIENT DEAF AND MUTE. HOME MEDS RESTARTED AND GIVEN. HR ELEVATED THIS AM IN 130S, NOTIFIED PROVIDER GAVE ORAL SCHEDULED CARDIZEM MED EARLY. PATIENT ON RA THROUGHOUT NIGHT. INDEPENDENT IN ROOM.
[2022-07-31] MEDS ORDERED: HUMALOG KW100 UNIT/1 SC (14:02)
[2022-07-31] MEDS ORDERED: Acetaminophen650 M1 PO (14:03)
[2022-07-31] MEDS ORDERED: METO50ER PO (14:22)
--- NOTE | 2022-07-31 19:24 | NUR ---
1540 PT AMBULATED TO [place]. SHOWED ME HER PORTABLE CBG METER SHOWS 48 CBG. GAVE APPLE JUICE X2 AND PUDDING. CALLED DR MCGOVERN,, NO ORDERS FOR THIS. OUR CBG SHOWS 53, 1600 CBG SHOWS 61 PT EATING SNACKS. 1641 PT CBG 177. PT PENDING TO EAT DINNER SOON. HER CBG METER SHOWS 217 GAVE NORMAL INSULIN JUST [id number] DINNER. 1730 PT GOT REGULAR DINNER PLUS STEW.
--- NOTE | 2022-07-31 19:29 | NUR ---
1410 DR MCGOVERN HELD DISCHARGE R/T HTN. STATES TO ORDER NEW BP MED. 1410 NEW B/P 142/109 P 84 1430 GAVE NEW METOPROL 1546 NEW BP 147/[address] MCGOVERN. ORDDRS FOR LISINOPRIL NOW AND DAILY,. GAVE AT 1723. UPDATED ON CBG , NO NEW ORDERS. 1644 153/107 P 71
--- NOTE | 2022-07-31 19:40 | NUR ---
PT WAS TO D/C TODAY. DR HELD R/T BP ELEVATED. PT IS UPSET ANGRY AND MAD R/T FOOD, AND NOW NEEDING TO STAY OVERNITE. I SPENT OVER 3 HOURS OVER NUMEROUS TIMES WITH SCREEN INTERPRETOR. WE DISCUSSED HER LOW CBG, AND HER HYPERTENSION. ALSO HER FOOD WHICH SHE STATES IS HORRIBLE. OFFERED HER TO ORDER OUT, BUT MUST SELF PAY, IF SHE IS SO INCLINED. SHE STATES NO MONEY AND DOES NOT WANT TO BUY HER OWN FOOD. CONTINUED TO MAKE DEMANDS FOR FOOD WE DO NOT HAVE, STEAKS. MEATLOAF. ETC. DR STARTED ON 2 NEW B/P MEDS THIS AFT. WATCHING OVERNIGHT. PT SHOWED ME HOME CBG MONITOR WAS 48 THIS AFT. WE TREATED. OURS CGB MACHINE NOTED 51 AFTER JUICE. CONTINUE TO GIVE FOOD UNTIL UP TO 177. PT MONITOR SHOWED 217(?). SHORTLY BEFORE I GAVE INSULIN. THEN SHE ATE DINNER. SPENT NUMEROUS TIMES WITH SCREEN INTERPRETOR TO COMMUNICATE ALL HER NEEDS WITH MED CHANGES, CBG ISSUES, STAYING OVERNIGHT. SHE STATES WILL LEAVE AMA TOMORROW AM EVEN IF NOT DISCHARGED. STATES HAS DOG THAT WILL SAVE HER. SHE STILL ASSURES ME WILL GO HOME TOMORROW AM. BED IN LOW POSITION, CALL LITE IN REACH, CALLS APPROP. INDEPENDANT IN ROOM.
[2022-08-01 03:20] VITALS: BP 178/94
[2022-08-01 03:21] VITALS: BP 166/88
[2022-08-01 04:30] VITALS: BP 160/88
--- NOTE | 2022-08-01 05:20 | NUR ---
SUMMARY: PATIENT BP ELEVATED OVERNIGHT. PRN MEDS GIVEN. PATIENT VERY EASILY AGITATED WITH STAFF. SALES ENGINEER ACCOUNT MANAGER USED FREQUENTLY WHEN COMMUNICATING WITH PATIENT AT BEDSIDE. TELE IN PLACE THEY CALLED AND STATED THAT PATIENT PACING SPIKES WERE HAPPENING OCCASIONALLY IN BUNDLES OF THREE SPIKES. RECOMMENDED THAT PACER IS ENTEROGATED TOMORROW. NOTIFIED CHARGE NURSE. PATIENT STABLE WITH NO CHANGES AT THIS TIME. WILL PASS MESSAGE ONTO DAY SHIFT PROVIDER AND LEAVE TELE STRIP AT BEDSIDE FOR PROVIDER TO REVIEW.
[2022-08-01 06:50] LABS: Bun/Creatinine Ratio 14.2 (12.0-20.0); Calcium, Blood 8.4 mg/dL (8.5-10.1); Creatinine, Blood 0.63 mg/dL (0.40-1.00); Potassium, Blood 3.6 mmol/L (3.5-5.5)
[2022-08-01 06:54] LABS: BASOPHILS ABSOLUTE AUTO 0.05 K/mm3 (0.00-0.23); BASOPHILS PERCENT AUTO 1 % (0-2); EOSINOPHILS ABSOLUTE AUTO 0.18 K/mm3 (0.00-0.68); EOSINOPHILS PERCENT AUTO 2 % (0-6); Hemoglobin 12.5 g/dL (11.5-16.0); IMMATURE GRAN ABSOLUTE AUTO 0.04 K/mm3 (0.00-0.10); IMMATURE GRAN PERCENT AUTO 0 % (0-1); LYMPHOCYTES ABSOLUTE AUTO 1.38 K/mm3 (0.84-5.20); LYMPHOCYTES PERCENT AUTO 13 % (21-46); MONOCYTES ABSOLUTE AUTO 1.28 K/mm3 (0.16-1.47); MONOCYTES PERCENT AUTO 12 % (4-13); Mean Corpuscular HGB 27.9 pg (26.0-34.0); Mean Corpuscular HGB Conc 31.3 g/dL (31.5-36.5); Mean Corpuscular Volume 89 fL (80-100); Mean Platelet Volume 9.8 fL (9.1-12.4); NEUTROPHILS ABSOLUTE AUTO 8.13 K/mm3 (1.96-9.15); NEUTROPHILS PERCENT AUTO 73 % (41-73); Platelet Count 296 K/mm3 (150-400); RDW Standard Deviation 45.3 fL (35.1-46.3); Red Blood Cell Count 4.48 M/mm3 (3.80-5.20); White Blood Cell Count 11.06 K/mm3 (4.00-11.30)
[2022-08-01 07:55] VITALS: BP 173/118
[2022-08-01 09:22] VITALS: BP 149/71
--- NOTE | 2022-08-01 13:45 | NUR ---
PATIENT D/C'D TO HOME VIA [facility]. RX MEDICATIONS SENT TO [employer]. D/C INSTRUCTION AND EDUCATION DISCUSSED WITH PATIENT AND COPY PROVIDED. DAUGHTER IN LAW NOTIFIED OF DC AND WILL ONLINE MARKETING MANAGER PRESCRIPTION MEDS AND MEET PATIENT AT HER HOME.
== END 2022-08-01 13:50 | disposition home or self-care (01) | DRG 189 ==
LOC: ER 04:56 → MEDS 09:44
PROVIDERS: Emergency Medicine; Student in an Organized Health Care Education/Training Program; ADMIT Internal Medicine
PROC: 4A02XFZ Measurement of Cardiac Rhythm, External Approach (ICD-10-PCS; principal; 2022-07-30)
DX: J96.01 Acute respiratory failure with hypoxia (principal); I47.20 Ventricular tachycardia, unspecified; J44.1 Chronic obstructive pulmonary disease with (acute) exacerbation; I50.22 Chronic systolic (congestive) heart failure; I11.0 Hypertensive heart disease with heart failure; I48.91 Unspecified atrial fibrillation; I16.0 Hypertensive urgency; G25.81 Restless legs syndrome; G47.00 Insomnia, unspecified; E11.40 Type 2 diabetes mellitus with diabetic neuropathy, unspecified; E11.65 Type 2 diabetes mellitus with hyperglycemia; J30.2 Other seasonal allergic rhinitis; H91.3 Deaf nonspeaking, not elsewhere classified; I25.10 Atherosclerotic heart disease of native coronary artery without angina pectoris; F41.8 Other specified anxiety disorders; H54.40 Blindness, one eye, unspecified eye; E78.00 Pure hypercholesterolemia, unspecified; Z20.822 Contact with and (suspected) exposure to COVID-19; I25.2 Old myocardial infarction; Z87.891 Personal history of nicotine dependence; Z99.81 Dependence on supplemental oxygen; Z79.51 Long term (current) use of inhaled steroids; Z95.5 Presence of coronary angioplasty implant and graft; Z95.810 Presence of automatic (implantable) cardiac defibrillator; Z79.82 Long term (current) use of aspirin; Z79.4 Long term (current) use of insulin; Z79.899 Other long term (current) drug therapy; Z88.8 Allergy status to other drugs, medicaments and biological substances; Z79.52 Long term (current) use of systemic steroids; Z79.02 Long term (current) use of antithrombotics/antiplatelets
CPT/HCPCS: 0241U; 36415; 71045; 80048; 80053; 82947; 83735; 83880; 84484; 85025; 93005; 93010; 94640; 94664; 94760; 99285-25; A9270; J0360; J1650; J1815

== ENCOUNTER 2022-10-14 13:10 | Inpatient (IN) | payer OTHER ==
[~2022-10-14] VITALS: Ht 149.9 cm; Wt 58.7 kg
[~2022-10-14 13:10] MED LIST changes: +ALBU2.5V5 NEB; +Acetaminophen650 M1 PO; +BUME2 PO; +Buspirone HCl15 MG PO; +Chantix1 MG PO; +DOCUZEN 8.6-501 EACH PO; +FISH OIL-VIT D1 EACH PO; +Ginger250 MG PO; +METO50ER PO; +MEXITIL PO; +ROPI.25 PO; -ROPI1 PO; -SENNA LAXATIVE8.6 MG PO
[2022-10-14 17:18] LABS: BASOPHILS ABSOLUTE AUTO 0.05 K/mm3 (0.00-0.23); BASOPHILS PERCENT AUTO 1 % (0-2); EOSINOPHILS ABSOLUTE AUTO 0.14 K/mm3 (0.00-0.68); EOSINOPHILS PERCENT AUTO 2 % (0-6); Hematocrit 43.2 % (33.0-51.0); Hemoglobin 13.7 g/dL (11.5-16.0); IMMATURE GRAN ABSOLUTE AUTO 0.01 K/mm3 (0.00-0.10); IMMATURE GRAN PERCENT AUTO 0 % (0-1); LYMPHOCYTES PERCENT AUTO 33 % (21-46); MONOCYTES ABSOLUTE AUTO 0.64 K/mm3 (0.16-1.47); MONOCYTES PERCENT AUTO 9 % (4-13); Mean Corpuscular HGB 28.4 pg (26.0-34.0); Mean Corpuscular HGB Conc 31.7 g/dL (31.5-36.5); Mean Corpuscular Volume 89 fL (80-100); Mean Platelet Volume 9.6 fL (9.1-12.4); NEUTROPHILS ABSOLUTE AUTO 4.08 K/mm3 (1.96-9.15); NEUTROPHILS PERCENT AUTO 56 % (41-73); Platelet Count 265 K/mm3 (150-400); RDW Standard Deviation 42.3 fL (35.1-46.3); Red Blood Cell Count 4.83 M/mm3 (3.80-5.20); White Blood Cell Count 7.32 K/mm3 (4.00-11.30)
[2022-10-14 17:41] LABS: Acetaminophen, Random <2.0 ug/mL (10.0-30.0); Alanine Aminotransfer (ALT/SGP 42 U/L (12-78); Albumin, Blood 4.1 g/dL (3.4-5.0); Albumin/Globulin Ratio 1.2 (0.8-1.8); Alk Phos 68 U/L (50-136); Anion Gap 6 mmol/L (6-16); Aspartate Aminotrans (AST/SGOT 23 U/L (12-37); Bilirubin, Total 0.4 mg/dL (0.1-1.0); Blood Urea Nitrogen 15 mg/dL (8-24); Bun/Creatinine Ratio 14.3 (12.0-20.0); CO2, Blood 33 mmol/L (21-32); Calcium, Blood 8.8 mg/dL (8.5-10.1); Chloride, Blood 104 mmol/L (98-108); Creatinine, Blood 1.05 mg/dL (0.40-1.00); Ethanol (Alcohol), Blood, Med <3 mg/dL; Globulin, Blood 3.4 g/dL (2.2-4.0); Glomerular Filtration Rate 62 (60-); Glucose, Blood 126 mg/dL (70-99); Potassium, Blood 3.3 mmol/L (3.5-5.5); Salicylate <1.7 mg/dL (2.8-20.0); Sodium, Blood 143 mmol/L (136-145); Total Protein, Blood 7.5 g/dL (6.4-8.2)
[2022-10-14 17:52] LABS: Source, Urine Clean Catch
[2022-10-14 18:00] LABS: Appearance, Urine Clear (Clear); Bilirubin, Urine Neg (Neg); Blood, Urine Neg (Neg); Glucose Qualitative, Urine Neg (Neg); Ketones, Urine Neg (Neg); Leukocyte Esterase, Urine 2+ (Neg); Nitrite, Urine Neg (Neg); Protein, Urine Neg (Neg); Urobilinogen, Urine NORM (Normal)
[2022-10-14 18:13] LABS: U Amphetamine Screen Not Detected; U Barbituate Screen Not Detected; U Benzodiazapine Screen Not Detected; U Buprenorphine Screen Not Detected; U Cannabinoids Screen Not Detected; U Cocaine Screen Not Detected; U Methadone Screen Not Detected; U Methamphetamine Screen Not Detected; U Opiates Screen Not Detected; U Oxycodone Screen Not Detected; U Phencyclidine Screen Not Detected; U Propoxyphene Screen Not Detected
[2022-10-14 18:14] LABS: Color, Urine Pale Yellow (P-Yellow)
[2022-10-14 18:23] LABS: Bacteria Few /hpf; Red Blood Cells, Urine 0-2 /hpf (0-2); Squamous Epithelial Cells Few /hpf (Few); Transitional Epithelial Cells Rare /hpf (0-Rare)
[2022-10-15 11:29] LABS: Bun/Creatinine Ratio 16.2 (12.0-20.0); Calcium, Blood 8.3 mg/dL (8.5-10.1); Creatinine, Blood 1.05 mg/dL (0.40-1.00); Potassium, Blood 4.5 mmol/L (3.5-5.5)
[2022-10-15 12:52] LABS: Base Excess Venous 6.9 mmol/L; Bicarbonate Venous 28.7 mmol/L (24.0-30.0); PCO2 Venous 58.8 mmHg (38-42); pH Blood Venous 7.35 (7.34-7.37)
[2022-10-15 13:02] LABS: Glucose, Blood 488 mg/dL (70-99)
[2022-10-15 18:35] VITALS: BP 106/91
--- NOTE | 2022-10-15 19:01 | NUR ---
UPDATE PT TRANSFERRED TO UNIT AT 1835. VSS. 1:1 CLINICAL SITTER AT BEDSIDE. CALL LIGHT WITHIN REACH. PT COMMUNICATING WITH PAPER AND PEN. BLOOD SUGAR STABLE, 141. WILL CONT TO MONITOR UNTIL REPORT GIVEN TO NIGHTSHIFT RN.
[2022-10-15 20:00] VITALS: BP 131/85
--- NOTE | 2022-10-15 20:53 | NUR ---
ASSUMPTION OF CARE THIS RN ASSUMED CARE OF PT AT 1915. PT A&O X3; INTERACTING AND RESPONDING TO QUESTIONS. ALTHOUGH PT CONFUSED OR UNSURE OF WHY SHE WAS BROUGHT TO HOSPITAL. PT COMMUNICATES USING ASL. VSS. PT AMBULATING AROUND ROOM, BACK FORTH FROM EOB TO AMBULATING. PT DENIES SOB. DENIES CP OR PRESSURE. DENIES SIGNS/SX OF BLOOD SUGAR. PT STATES SHE HAS DEXCOM, BUT RECENTLY "RIPPED IN OUT D/T INFECTION AND ITCHING". PT PROVIDED A SNACK AND WATER. PT DENIES ANY OTHER NEEDS AT THIS TIME. CALL LIGHT IN REACH AND PT ORIENTED TO ROOM AND CALL LIGHT.
--- NOTE | 2022-10-15 21:01 | NUR ---
UPDATE 1999 CBG SHOWED 47. PT SYMPTOMATIC; PT UNABLE TO COMMUNICATE BUT IS AWAKE, UNABLE TO UNDERSTAND OR COMPREHEND QUESTIONS BEING ASKED. PT DIAPHORETIC, CLAMMY AND PALE. PT SITTING UP IN BED BUT IS LEANING OVER/FALLING OVER. D50 AMP ADMINISTERED PER PROTOCOL. PT ALSO GIVEN SNACK AND ORANGE JUICE, ABLE TO SWALLOW SAFELY. PT BEGINNING TO BECOME MORE ALERT AND ORIENTED, ABLE TO COMMUNICATE SOME. CBG RECHECK 240. RESIDENT AND ATTENDING NOTIFIED. NEW ORDERS FOR D5 GTT AT 100 MLS/HR. GTT STARTED. WILL CONTINUE TO MONITOR.
--- NOTE | 2022-10-16 00:18 | NUR ---
UPDATE 0000 CBG 311. RESIDENT NOTIFIED. NEW ORDERS TO STOP D5 GTT AND RECHECK CBG PER ORDER. THEN RN TO NOTIFY RESIDENT WITH RESULT. GTT IN STANDBY AT THIS TIME.
[2022-10-16 00:30] VITALS: BP 144/88
[2022-10-16 04:07] LABS: BASOPHILS ABSOLUTE AUTO 0.03 K/mm3 (0.00-0.23); BASOPHILS PERCENT AUTO 1 % (0-2); EOSINOPHILS ABSOLUTE AUTO 0.16 K/mm3 (0.00-0.68); EOSINOPHILS PERCENT AUTO 3 % (0-6); Hematocrit 39.7 % (33.0-51.0); Hemoglobin 12.8 g/dL (11.5-16.0); IMMATURE GRAN ABSOLUTE AUTO 0.01 K/mm3 (0.00-0.10); IMMATURE GRAN PERCENT AUTO 0 % (0-1); LYMPHOCYTES ABSOLUTE AUTO 1.66 K/mm3 (0.84-5.20); LYMPHOCYTES PERCENT AUTO 30 % (21-46); MONOCYTES ABSOLUTE AUTO 0.61 K/mm3 (0.16-1.47); MONOCYTES PERCENT AUTO 11 % (4-13); Mean Corpuscular HGB 28.5 pg (26.0-34.0); Mean Corpuscular HGB Conc 32.2 g/dL (31.5-36.5); Mean Corpuscular Volume 88 fL (80-100); Mean Platelet Volume 10.2 fL (9.1-12.4); NEUTROPHILS PERCENT AUTO 56 % (41-73); Platelet Count 216 K/mm3 (150-400); RDW Coefficient Variation 13.1 % (11.7-14.2); RDW Standard Deviation 42.8 fL (35.1-46.3); Red Blood Cell Count 4.49 M/mm3 (3.80-5.20); White Blood Cell Count 5.57 K/mm3 (4.00-11.30)
[2022-10-16 04:45] VITALS: BP 109/70
[2022-10-16 05:52] LABS: Albumin, Blood 3.4 g/dL (3.4-5.0); Albumin/Globulin Ratio 1.1 (0.8-1.8); Bilirubin, Total 0.3 mg/dL (0.1-1.0); Bun/Creatinine Ratio 15.2 (12.0-20.0); Calcium, Blood 8.6 mg/dL (8.5-10.1); Creatinine, Blood 0.79 mg/dL (0.40-1.00); Globulin, Blood 3.2 g/dL (2.2-4.0); Potassium, Blood 3.6 mmol/L (3.5-5.5); Total Protein, Blood 6.6 g/dL (6.4-8.2)
--- NOTE | 2022-10-16 06:03 | NUR ---
SHIFT SUMMARY PT REMAINS A&0 X3. VSS. PT WAS CALM AND COOPERATIVE DURING SHIFT. PT HAD ONE EPISODE OF LOW CBG; SEE PREVIOUS NURING NOTES. SINCE PT HAS BEEN OFF D5 GTT D/T CBG OF 311. CBG MAINTAINING IN 200'S. PT HAS BEEN SLEEPING THROUGHOUT SHIFT. 1:1 AT BEDSIDE. PT UP TO RESTROOM W/SBA TO VOID DURING SHIFT. CALL LIGHT IN REACH. WILL UPDATE ONCOMING RN.
[2022-10-16 07:48] VITALS: BP 127/80
[2022-10-16 13:01] VITALS: BP 129/83
[2022-10-16 15:55] VITALS: BP 138/93
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
[2022-10-16 20:00] VITALS: BP 118/83
--- NOTE | 2022-10-16 20:30 | NUR ---
ASSUMPTION OF CARE THIS RN ASSUMED CARE OF PT AT 1900. REPORT FROM VIKI TEIXEIRA. SALES ENGAGEMENT EXECUTIVE AT BEDSIDE, PT SITTING UP IN BED. 1:1 SITTER ALSO IN ROOM. PT A&O X3; SOME CONFUSION ON REASONING FOR BEING AT HOSPITAL AND EVENTS LEADING UP TO. PT INTERACTING AND RESPONDING TO QUESTIONS APPROPRIATELY, ALTHOUGH AT TIMES PT GETS FRUSTRATED OR AGITATED WHEN TOPICS OF FAMILY OR MEDICATION SCHEDULES HERE AT THE HOSPITAL COME UP. PT NOT VIOLENT AND NO MISBEHAVIORS. PT HAVE DIFFICULT TIME UNDERSTANDING DIFFERENT MEDICATIONS AND SCHEDULES AT HOSPITAL VS AT HOME. THIS RN PROVIDED EDUCATION AND EXPLANATION REGARDING THIS. VSS. PT DENIES ANY CP OR PRESSURE, DENIES SOB. DENIES N/V, OR SIGNS/SX OF HYPOGLYCEMIA DURING THE DAY OR CURRENTLY. CBG 311. PT REQUESTING SOME SNACKS AT THIS TIME, OTHERWISE DENIES ANY OTHER NEEDS. CALL LIGHT IN REACH.
--- NOTE | 2022-10-17 00:08 | NUR ---
UPDATE 2229 PT NOTIFIED THIS RN THAT SHE "FEELS LIKE BLOOD SUGAR IS HIGH". CBG CHECK SHOWS 447. RESIDENT NOTIFIED AND NEW SC ORDERS TO INCLUDE HS DOSING. THIS RN HAD PROBLEMS D/T ORDERS COMING ACROSS AND NOT ALLOWING SCAN; NO INSULIN GIVEN AT THIS TIME AND RESIDENT NOTIFIED AND THIS RN ASKED FOR CLARIFICATION OF ORDERS. TELEPHONE ORDERS TO RECHECK CBG NOW AND PROVIDE COVERAGE NOW PER HS DOSING ON SCALE. CBG 465. RESIDENT AWARE OF NEW BLOOD SUGAR. THIS RN ADMINISTERED INSULIN PER ORDERS AND EMAR. WILL RECHECK CBG.
[2022-10-17 01:29] VITALS: BP 132/73
--- NOTE | 2022-10-17 02:08 | NUR ---
UPDATE RECHECK OF CBG SHOWED 447. RESIDENT NOTIFIED, NEW ORDERS FOR 8 UNITS OF HUMALOG/KWIK PEN ONE TIME AND RECHECK CBG.
[2022-10-17 02:13] LABS: BASOPHILS ABSOLUTE AUTO 0.03 K/mm3 (0.00-0.23); BASOPHILS PERCENT AUTO 1 % (0-2); EOSINOPHILS ABSOLUTE AUTO 0.13 K/mm3 (0.00-0.68); EOSINOPHILS PERCENT AUTO 3 % (0-6); Hematocrit 37.9 % (33.0-51.0); IMMATURE GRAN ABSOLUTE AUTO 0.01 K/mm3 (0.00-0.10); IMMATURE GRAN PERCENT AUTO 0 % (0-1); LYMPHOCYTES ABSOLUTE AUTO 1.91 K/mm3 (0.84-5.20); LYMPHOCYTES PERCENT AUTO 37 % (21-46); MONOCYTES ABSOLUTE AUTO 0.61 K/mm3 (0.16-1.47); MONOCYTES PERCENT AUTO 12 % (4-13); Mean Corpuscular HGB 28.1 pg (26.0-34.0); Mean Corpuscular HGB Conc 31.7 g/dL (31.5-36.5); Mean Corpuscular Volume 89 fL (80-100); Mean Platelet Volume 9.8 fL (9.1-12.4); NEUTROPHILS ABSOLUTE AUTO 2.43 K/mm3 (1.96-9.15); NEUTROPHILS PERCENT AUTO 48 % (41-73); Platelet Count 192 K/mm3 (150-400); RDW Coefficient Variation 12.9 % (11.7-14.2); RDW Standard Deviation 42.5 fL (35.1-46.3); Red Blood Cell Count 4.27 M/mm3 (3.80-5.20); White Blood Cell Count 5.12 K/mm3 (4.00-11.30)
[2022-10-17 02:30] LABS: Albumin, Blood 3.3 g/dL (3.4-5.0); Albumin/Globulin Ratio 1.1 (0.8-1.8); Bilirubin, Total 0.4 mg/dL (0.1-1.0); Bun/Creatinine Ratio 16.8 (12.0-20.0); Calcium, Blood 8.3 mg/dL (8.5-10.1); Creatinine, Blood 1.01 mg/dL (0.40-1.00); Globulin, Blood 2.9 g/dL (2.2-4.0); Potassium, Blood 3.4 mmol/L (3.5-5.5); Total Protein, Blood 6.2 g/dL (6.4-8.2)
[2022-10-17 03:56] VITALS: BP 121/85
--- NOTE | 2022-10-17 06:09 | NUR ---
SHIFT SUMMARY PT A&O X3. PT CALM AND COOPERTIVE DURING SHIFT. LAST CBG 99. PT UP AMBULATING AROUND ROOM. VSS THROUGHOUT SHIFT. 1:1 SITTER IN ROOM FOR SHIFT. NO CHANGES DURING SHIFT OTHER THAN CBG'S. PT UP VOIDING INDEPENDENTLY. CALL LIGHT IN REACH. WILL UPDATE ONCOMING RN
[2022-10-17 08:00] VITALS: BP 136/85
[2022-10-17] MEDS ORDERED: FLUT1DIS5 INH (14:08)
[2022-10-17] MEDS ORDERED: Amiodarone HCl200 MG PO (14:19)
[2022-10-17] MEDS ORDERED: Tessalon200 MG PO (14:21)
[2022-10-17] MEDS ORDERED: CARV25 PO (14:29)
[2022-10-17] MEDS ORDERED: ELIQUIS5 M2 PO (14:31)
[2022-10-17] MEDS ORDERED: DILT180 PO (14:31)
[2022-10-17] MEDS ORDERED: ENTRESTO 49 MG1 EACH PO (14:32)
[2022-10-17] MEDS ORDERED: FIASP 100100 UNIT/3 (14:33)
[2022-10-17] MEDS ORDERED: Diflucan150 MG PO (14:35)
[2022-10-17] MEDS ORDERED: GVOKE HYPO1 MG/0.21 IM (14:37)
[2022-10-17] MEDS ORDERED: LEVOCETIRIZINE D5 MG PO (14:38)
[2022-10-17] MEDS ORDERED: Acetaminophen325 M1 PO (14:40)
[2022-10-17] MEDS ORDERED: NITR.4SL SL (14:40)
[2022-10-17] MEDS ORDERED: INSULANPEN SC (14:42)
[2022-10-17] MEDS ORDERED: SERT100 PO (14:46)
--- NOTE | 2022-10-17 18:21 | NUR ---
SHIFT SUMMARY IN PERSON OF TELE SCIENCE INTERPRETER USED THROUGHOUT SHIFT FOR COMMUNICATION. MEDICATIONS RECONCILED AND INSULIN ORDERS UPDATED. AT BEGINNING OF SHIFT, PATIENT STATED THAT SHE DOSES HER SHORT ACTING INSULIN BASED ON CARB COUNTING, BUT COULD NOT SUCCESSFULLY DEMONSTRATE CARB COUNTING. MEDICATION RECORD RECEIVED FROM PRIMARY CARE PROVIDER. CALL MADE TO HOSPITALIST AND ORDERS RECEIVED FOR ONE TIME DOSE OF 5 UNITS SHORT ACTING ONE TIME-ADMINISTERED PER EMAR-AND 5 UNTIS GLARGINE AT BEDTIME. ORDERS RECEIVED TO MONITOR BLOOD GLUCOSE AND SKIP DINNER TIME COVERAGE TO PREVENT HYPOGLYCEMIA DURING THE NIGHT. PATIENT WAS ABLE TO WALK INDEPENDENTLY IN ROOM AND WITH STAFF AROUND UNIT. PATIENT EXHIBITED YELLING AND PACING AT TIMES WHEN COMMUNICATION NEEDS WERE NOT BEING SUCCESSFULLY MET, BUT BECAME MORE COOPERATIVE WITH INTERPRETERS. MOOD REMAINS LABILE BUT NOT AGGRESSIVE TOWARDS STAFF OR SELF. PATIENT C/O BACK AND HAND PAIN THIS EVENING AND ORDERS RECEIVED FOR BENGAY CREAM PRN. NO ACUTE EVENTS DURING SHIFT.
--- NOTE | 2022-10-17 19:37 | NUR ---
REQUEST COCHLEAR DEVICE AND IPAD WHILE IN THE ROOM WITH THE PATIENT, SHE HAD THE DIRECTOR CLINICAL OPERATIONS CALL HER GUARDIANS-[facility]- TO REQUEST THAT THEY BRING IN HER COCHLEAR DEVICE AND IPAD TO ASSIST HER WITH COMMUNICATING WITH STAFF. [facility] AND [employer] STATED THROUGH THE DIRECTOR CLINICAL OPERATIONS USING THE PHONE THAT THEY WOULD NOT BE BRINGING IN THESE ITEMS TONIGHT OR TOMORROW AND THAT THEY CANNOT MAKE DAILY TRIPS INTO [facility]. [facility] STATED THEY WOULD BRING THE ITEMS TO THE PATIENT ON SUNDAY, THEN THE CALL WAS ENDED.
[2022-10-17 19:56] VITALS: BP 145/88
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
[2022-10-18 05:00] VITALS: BP 117/65
[2022-10-18 05:52] LABS: Bun/Creatinine Ratio 15.8 (12.0-20.0); Calcium, Blood 8.5 mg/dL (8.5-10.1); Creatinine, Blood 0.95 mg/dL (0.40-1.00); Potassium, Blood 4.1 mmol/L (3.5-5.5)
[2022-10-18 07:59] VITALS: BP 160/87
--- NOTE | 2022-10-18 08:41 | NUR ---
Ethics consult order processed. Review of guardianship hold requested. The principal is reported to be medically stable, but is elegible for IP psychiatric facility placement per Dr Lester. The legally appointed fiduciary agent is in alignment with the disposition plan. The principal has expressed interest in being discharged home and is apparently declining other options. Given that by formal judicial order she is considered incapacitated, the principal does not possess the privilege of exercising this right. If the principal wishes to contest or dispute her guardianship, she can engage in the necessary activities to do so. If IP placement becomes a non-achievable or non-realistic goal, and she remains clinically stable, then an alternative plan should be discussed and pursued. Thank you for this consult. Chepe Hill, PhD, CORAL
[2022-10-18 16:18] VITALS: BP 132/88
--- NOTE | 2022-10-18 17:42 | NUR ---
SHIFT SUMMARY; ASSUMED CARE AT 0700. INTERRPERTAURE FOR ASL IN ROOM AT SHIFT CHANGE. PT VERY UPSET THIS MORNING STATING CAN GO HOME AND TAKE CARE OF HERSELF. STATES WANTS TO HAVE GUARDIANS REMOVED. VERY ADJITATED AND REFUSES BREAKFAST. YELLING IN ROOM T/O SHIFT AND WAVING ARMS. COMMUNICATES VIA NOTE PAD AT TIMES STATING WE ARE NOT DOING HER INSULIN CORRECTLY. PACES T/O ROOM DURING SHIFT. ONE TO ONE SITTER WITH PT FOR SAFTEY. REFUSES LUNCH, THROWS MILK ACROSS ROOM ONTO FLOOR, THROWS CHICKEN IN THE TRASH. ATTEMPTED TO USE ASL LAPTOP. CONVERSATION VERY UNPRODUCTIVE PT WILL NOT COMMUNICATE IN CALM MANOR, THROWS ARMS UP, USES SIGN, YELLS LOUDLY. STATES WE ARE GIVING HER "TO MANY SHOTS" AND WILL NOT ALLOW MORE. ALLOWS INSULIN IN AFTERNOON PER CARB COUNT AFTER FINALLY EATING A GRILLED CHEESE. MEDICATED FOR AGITATION WITH SEROQUEL WITH MINIMAL RESULTS, REPORT GIVEN TO MEDICAL FLOOR RN FOR IN HOUSE TRANSFER.
[2022-10-18 17:56] VITALS: BP 138/93
--- NOTE | 2022-10-18 18:09 | NUR ---
PT ADMITTED TO ROOM 348 FROM PCU 9- AMBULATED RN ESCORT AND 1:1 SITTER. ORIENTED TO ROOM SET UP. INDEPENEDANT, PACING, ANGRY AND UPSET LOOKING FOR PHONE # OF BRAD AND MOTHER. MEDICATED WITH SEROQUEL- SEEMS TO BE CALMING DOWN HIEU (1820) SITTER HERE UNTIL 184
[2022-10-18 19:21] VITALS: BP 152/89
[2022-10-19 04:18] VITALS: BP 157/93
--- NOTE | 2022-10-19 05:51 | NUR ---
SHIFT SUMMARY PT SITTING UP IN BED VISITING WITH SERVICE CAR OPERATOR DURING BEDSIDE REPORT-PT DEAF AND USES ASL TO COMMUNICATE OR WRITES ON NOTEPAD -PT TOOK SCHEDULED MEDICATIONS AT HS WITHOUT PROBLEMS- 0115 PT UP IN HALLWAY WALKING WITH SITTER- PT REQUESTED CBG BE CHECKED- PT BELIEVED THAT IT WAS LOW - CBG DONE 337- PT REQUESTED INSULIN - EXPLAINED TO PT THAT THERE WAS NO COVERAGE AT THIS TIME AND THAT THIS RN WILL HAVE TO CALL HOSPITALIST FREELANCE WEB DESIGNER TO GET COVERAGE- COMMUNICATED WITH PT VIA WRITTING-THIS RN REQUSTED SITTER TO GET ONLINE SERVICE CAR OPERATOR ON THE COMPUTER- PT REALLY UPSET AND REPEATILY TOLD THE SERVICE CAR OPERATOR THAT WE ARE ALL DISCRIMMINATING TOWARDS HER AND PT STATED, " THE DOCTORS AND NURSES HATE DEAF PEOPLE", ATTEMPTED SEVERAL TIMES TO CALM THE PATIENT- CALL TO DR. MONTANO AND HE HAD ME DO 1 TIME MEDIUM SLIDE SCALE TO COVER THE 337- GAVE PT HUMALOG 8 UNITS-0500 LAB IN WITH PT TO DRAW BLOOD, PT REQUESTED REPEAT CBG, CBG =72- PT PULLED GLUCOSE TABS OUT OF HER BAG AND ATE 2 PER SITTER AND IS DRINKING ORANJE JUICE AND EATING COTY CRACKERS- LOCKED UP THE GLUCOSE TABS AND NOTIFIED THE PT THAT SHE NEEDS TO LET THE MANAGE HER CBGS- PT UPSET - REASSURRED PT THAT WE ARE TRYING TO MONITOR AND IF WE DON'T KNOW IF SHE TAKES OR EATS WE CAN'T MANAGE CORRECTLY- ENCOURAGED PT TO TRY TO RETURN TO SLEEPING AND WILL RECHECK BLOOD SUGAR IN A HOUR, PT INDEPENDENT TO WALK IN ROOM , 1:1 SITTER IN ROOM, CALL LIGHT WITHIN REACH IGNITION RISK ASSESSMENT DONE, PT DENIES HAVING IGNITION DEVICES
[2022-10-19 06:31] LABS: Albumin, Blood 3.8 g/dL (3.4-5.0); Albumin/Globulin Ratio 1.1 (0.8-1.8); Bilirubin, Total 0.4 mg/dL (0.1-1.0); Bun/Creatinine Ratio 19.6 (12.0-20.0); Calcium, Blood 9.2 mg/dL (8.5-10.1); Creatinine, Blood 1.02 mg/dL (0.40-1.00); Globulin, Blood 3.6 g/dL (2.2-4.0); Potassium, Blood 4.1 mmol/L (3.5-5.5); Total Protein, Blood 7.4 g/dL (6.4-8.2)
[2022-10-19 06:51] LABS: BASOPHILS ABSOLUTE AUTO 0.03 K/mm3 (0.00-0.23); BASOPHILS PERCENT AUTO 1 % (0-2); EOSINOPHILS ABSOLUTE AUTO 0.16 K/mm3 (0.00-0.68); EOSINOPHILS PERCENT AUTO 3 % (0-6); Hematocrit 37.1 % (33.0-51.0); Hemoglobin 11.9 g/dL (11.5-16.0); IMMATURE GRAN ABSOLUTE AUTO 0.01 K/mm3 (0.00-0.10); IMMATURE GRAN PERCENT AUTO 0 % (0-1); LYMPHOCYTES ABSOLUTE AUTO 2.07 K/mm3 (0.84-5.20); LYMPHOCYTES PERCENT AUTO 35 % (21-46); MONOCYTES ABSOLUTE AUTO 0.71 K/mm3 (0.16-1.47); MONOCYTES PERCENT AUTO 12 % (4-13); Mean Corpuscular HGB 28.3 pg (26.0-34.0); Mean Corpuscular HGB Conc 32.1 g/dL (31.5-36.5); Mean Corpuscular Volume 88 fL (80-100); Mean Platelet Volume 10.1 fL (9.1-12.4); NEUTROPHILS ABSOLUTE AUTO 2.89 K/mm3 (1.96-9.15); NEUTROPHILS PERCENT AUTO 49 % (41-73); Platelet Count 199 K/mm3 (150-400); RDW Coefficient Variation 12.9 % (11.7-14.2); RDW Standard Deviation 41.4 fL (35.1-46.3); Red Blood Cell Count 4.21 M/mm3 (3.80-5.20); White Blood Cell Count 5.87 K/mm3 (4.00-11.30)
[2022-10-19 07:27] VITALS: BP 153/87
[2022-10-19 16:02] VITALS: BP 155/92
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
[2022-10-19 19:25] VITALS: BP 150/98
[2022-10-20 03:08] VITALS: BP 146/81
[2022-10-20 06:04] LABS: BASOPHILS ABSOLUTE AUTO 0.04 K/mm3 (0.00-0.23); BASOPHILS PERCENT AUTO 1 % (0-2); EOSINOPHILS ABSOLUTE AUTO 0.13 K/mm3 (0.00-0.68); EOSINOPHILS PERCENT AUTO 3 % (0-6); Hematocrit 39.5 % (33.0-51.0); Hemoglobin 12.6 g/dL (11.5-16.0); IMMATURE GRAN ABSOLUTE AUTO 0.01 K/mm3 (0.00-0.10); IMMATURE GRAN PERCENT AUTO 0 % (0-1); LYMPHOCYTES ABSOLUTE AUTO 1.66 K/mm3 (0.84-5.20); LYMPHOCYTES PERCENT AUTO 34 % (21-46); MONOCYTES ABSOLUTE AUTO 0.53 K/mm3 (0.16-1.47); MONOCYTES PERCENT AUTO 11 % (4-13); Mean Corpuscular HGB 28.1 pg (26.0-34.0); Mean Corpuscular HGB Conc 31.9 g/dL (31.5-36.5); Mean Corpuscular Volume 88 fL (80-100); Mean Platelet Volume 10.5 fL (9.1-12.4); NEUTROPHILS ABSOLUTE AUTO 2.57 K/mm3 (1.96-9.15); NEUTROPHILS PERCENT AUTO 52 % (41-73); Platelet Count 200 K/mm3 (150-400); RDW Coefficient Variation 12.9 % (11.7-14.2); Red Blood Cell Count 4.48 M/mm3 (3.80-5.20); White Blood Cell Count 4.94 K/mm3 (4.00-11.30)
[2022-10-20 06:25] LABS: Albumin, Blood 3.3 g/dL (3.4-5.0); Albumin/Globulin Ratio 1.1 (0.8-1.8); Bilirubin, Total 0.3 mg/dL (0.1-1.0); Bun/Creatinine Ratio 19.7 (12.0-20.0); Calcium, Blood 8.5 mg/dL (8.5-10.1); Creatinine, Blood 0.92 mg/dL (0.40-1.00); Globulin, Blood 3.1 g/dL (2.2-4.0); Potassium, Blood 3.1 mmol/L (3.5-5.5); Total Protein, Blood 6.4 g/dL (6.4-8.2)
--- NOTE | 2022-10-20 06:31 | NUR ---
SHIFT SUMMARY PT ON 1:1 SITTER-PT UP IN ROOM AND HALLWAY DURING BEDSIDE REPORT, PT DEMANDING TO LEAVE AND GET HER IPAD, PT REPORTED THAT HER GUARDIAN BRAD SENT THE WRONG IPAD FOR PATIENT, PT UPSET AND CONTINUED TO DEMAND THAT SHE LEAVE, EXPLAINED TO PT THAT SHE CAN'T LEAVE FACILITY- MACHINE TECH IN AND ASSISTING WITH EXPLAINING MEDICATIONS AND PT'S NEEDS. PT TOLD THE SORTING GRAPPLE OPERATOR THAT SHE HAS A OFFICE CLERK AND WHAT WE ARE DOING IS AGAINST LAW BY NOT LETTING HER LEAVE THE FACILITY, EXPLAINED TO PT THAT SHE IS ON A HOLD AND SHE CAN'T LEAVE - PT CALMED- PT BLOOD SUGAR WAS 87 AT HS, ENCOURAGED PT TO HAVE SNACK AND THAT WE WOULD RECHECK HER IN 1 HOUR, PT ATE STRAWBERRIES, FRUIT CUP, COTY CRACKER, AND OJ, REPEAT CBG 187= DISCUSSED WITH PT RE: INSULIN AND PT ONLY WANTED EMBROIDERY DESIGNER WHICH THIS RN AGREED- GAVE TYLENOL AND NE LEHMAN CREAM FOR SHOULDER, NECK, AND BILAT ARM PAIN- PT SLEPT T/O NIGHT- PT WOKE TO USE BATHROOM AND URINATED WITHOUT PROBLEMS, PT REQUESTED HEAT PAD AND WARM BLANKET- GAVE BOTH, BED LOW POSITION, CALL LIGHT WITHIN REACH, 1:1 SITTER IN ROOM
[2022-10-20 07:42] VITALS: BP 156/83
[2022-10-20 15:00] VITALS: BP 120/74
[2022-10-20 15:22] LABS: Influenza A, PCR NEGATIVE (NEGATIVE); Influenza B, PCR NEGATIVE (NEGATIVE); Resp Syncytial Virus, PCR NEGATIVE (NEGATIVE); SARS-Cov-2 (COVID-19) PCR, MMC NEGATIVE (NEGATIVE)
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
[2022-10-20 16:17] LABS: Source, Urine Clean Catch
--- NOTE | 2022-10-20 16:20 | NUR ---
BLOOD SUGAR UPDATE DR JOHNSTON NOTIFIED OF LOW BLOOD SUGARS AND ORANGE JUICE AND COTY CRACKERS GIVEN, PATIENT REFUSING BLOOD SUGAR UNTIL [address] 4:40[address]. DR JOHNSTON OKAY WITH WAITING ON BLOOD SUGAR CHECK UNLESS PATIENT FEELS LIKE SHE IS GETTING LOW BEFORE THEN. PATIENT NOTIFIED. SHE HAD SOME IRRITATION WITH NOT WANTING TO CHECK BLOOD SUGAR YET BUT CALMED QUICKLY AFTER NOTIFICATION OF WATING 1 HOUR. PATIENT NOW UP WALKING THE PERLA AND DENIES ANY SHAKINESS OR HEADACHES AT THIS TIME.
[2022-10-20 16:24] LABS: Appearance, Urine Clear (Clear); Bilirubin, Urine Neg (Neg); Blood, Urine 1+ (Neg); Color, Urine Yellow (P-Yellow); Glucose Qualitative, Urine Neg (Neg); Ketones, Urine Neg (Neg); Leukocyte Esterase, Urine 2+ (Neg); Nitrite, Urine Neg (Neg); Protein, Urine 1+ (Neg); Urobilinogen, Urine NORM (Normal)
[2022-10-20 17:08] LABS: Bacteria Few /hpf; Red Blood Cells, Urine 0-2 /hpf (0-2); Squamous Epithelial Cells Few /hpf (Few)
[2022-10-20 19:48] VITALS: BP 165/80
[2022-10-21 02:39] VITALS: BP 143/91
--- NOTE | 2022-10-21 03:15 | NUR ---
REVIEWED WITH PT IGNITION SOURCES AND RISK OF INJURY WHEN O2 IS IN USE. PT VERBALIZED GOOD UNDERSTANDING & DENIES SMOKING OR HAVING IGNITION SOURCES IN HER POSSESSION.
[2022-10-21 05:25] LABS: BASOPHILS ABSOLUTE AUTO 0.03 K/mm3 (0.00-0.23); BASOPHILS PERCENT AUTO 1 % (0-2); EOSINOPHILS ABSOLUTE AUTO 0.12 K/mm3 (0.00-0.68); EOSINOPHILS PERCENT AUTO 2 % (0-6); Hematocrit 38.3 % (33.0-51.0); Hemoglobin 12.6 g/dL (11.5-16.0); IMMATURE GRAN ABSOLUTE AUTO 0.01 K/mm3 (0.00-0.10); IMMATURE GRAN PERCENT AUTO 0 % (0-1); LYMPHOCYTES ABSOLUTE AUTO 1.58 K/mm3 (0.84-5.20); LYMPHOCYTES PERCENT AUTO 28 % (21-46); MONOCYTES ABSOLUTE AUTO 0.61 K/mm3 (0.16-1.47); MONOCYTES PERCENT AUTO 11 % (4-13); Mean Corpuscular HGB 28.6 pg (26.0-34.0); Mean Corpuscular HGB Conc 32.9 g/dL (31.5-36.5); Mean Corpuscular Volume 87 fL (80-100); Mean Platelet Volume 10.3 fL (9.1-12.4); NEUTROPHILS ABSOLUTE AUTO 3.24 K/mm3 (1.96-9.15); NEUTROPHILS PERCENT AUTO 58 % (41-73); Platelet Count 205 K/mm3 (150-400); RDW Coefficient Variation 12.8 % (11.7-14.2); RDW Standard Deviation 40.6 fL (35.1-46.3); Red Blood Cell Count 4.41 M/mm3 (3.80-5.20); White Blood Cell Count 5.59 K/mm3 (4.00-11.30)
--- NOTE | 2022-10-21 05:45 | NUR ---
SHIFT SUMMARY PRODUCTION SUPERINTENDENT HYDRO IN ROOM WITH PT TIL 2130, AFTER MED PASS. PT MEDICATED PER EMAR FOR MILD TO MOD AGITATION & C/O BILAT HAND & WRIST PAIN PER EMAR. PT COMMUNICATES DIFFICULTY FALLING ASLEEP THOUGH WAS ABLE TO LIE DOWN WITH WARM BLANKET AT APPROX 0500 AND RESTED WITH EYES CLOSED, RESP EVEN & UNLABORED. IS INDEPENDENT IN THE ROOM FOR RESTROOM USE & AMBULATED THE HALLS A FEW TIMES THIS SHIFT. BED IN LOW POSITION , CALL LIGHT WITHIN REACH.
[2022-10-21 05:55] LABS: Albumin, Blood 3.3 g/dL (3.4-5.0); Albumin/Globulin Ratio 1.1 (0.8-1.8); Bilirubin, Total 0.3 mg/dL (0.1-1.0); Bun/Creatinine Ratio 16.9 (12.0-20.0); Calcium, Blood 8.1 mg/dL (8.5-10.1); Creatinine, Blood 0.77 mg/dL (0.40-1.00); Globulin, Blood 2.9 g/dL (2.2-4.0); Potassium, Blood 3.3 mmol/L (3.5-5.5); Total Protein, Blood 6.2 g/dL (6.4-8.2)
[2022-10-21 07:24] VITALS: BP 142/67
--- NOTE | 2022-10-21 08:48 | NUR ---
BS 361 AT 0830 AM; READING FROM CONT GLUCOSE MONITOR
--- NOTE | 2022-10-21 12:01 | NUR ---
CONTINUOUS GLUCOSE MONITOR; [facility] [place] [facility] AT 12:00PM
[2022-10-21 15:19] VITALS: BP 141/87
--- NOTE | 2022-10-21 17:44 | NUR ---
CONT GLUCOSE READING 212 AT [id number]
--- NOTE | 2022-10-21 18:21 | NUR ---
DAY SHIFT SUMMARY NO ACUTE EVENTS. 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 USING PT CONTINUOUS GLUCOSE MONITOR FOR AC/HS GLUCOSE CHECKS. DR PATEL ADJUST INSULIN ORDERS TODAY. PT ABLE TO COMMUNICATE WITH PEN AND PAPER. MOMENTS OF AGITATION BUT RELIEF WHEN SHE FEELS UNDERSTOOD. PT WANTS TO RETURN HOME AND ANXIOUS TO LEAVE. DR PATEL ADD GABBAPENTIN FOR NERVE PAIN IN HANDS/ARMS; PT REFUSED MIDDAY DOSE. ASSESSED SOURCES OF IGNITION; PT EDCUATED OR SOURCED OS IGNITION.
--- NOTE | 2022-10-22 04:06 | NUR ---
SHIFT SUMMARY UNEVENTFUL SHIFT, NO ACUTE CHANGES. VSS. HAS RESTED QUIETLY WITH EYES CLOSED, RESP EVEN & UNLABORED. BED IN LOW POSITION, CALL LIGHT WITHIN REACH.
[2022-10-22 05:24] VITALS: BP 141/72
[2022-10-22 06:30] LABS: Bun/Creatinine Ratio 15.8 (12.0-20.0); Calcium, Blood 8.3 mg/dL (8.5-10.1); Creatinine, Blood 0.95 mg/dL (0.40-1.00); Potassium, Blood 3.8 mmol/L (3.5-5.5)
[2022-10-22 07:20] VITALS: BP 148/77
[2022-10-22 14:42] VITALS: BP 122/73
--- NOTE | 2022-10-22 16:39 | NUR ---
SHIFT SUMMARY PT AxOx4 WITH COMMUNICATION BARRIER D/T BEING DEAF. PT DISPLAYED IRRITABLE AND EASILY AGITATED BEHAVIOR THIS SHIFT R/T MEAL OPTIONS, DC PLANS, AND HOME/FAMILY STRESSES. PT AND STAFF WERE SUCCESSFULLY ABLE TO USE THE ONLINE [employer] TechnologyREFRACTORY SPECIALIST TO COMMUNICATE PRN THIS AM. PT WAS ALSO ABLE TO COMMUNICATE EFFECTIVELY VIA PEN/PAPER WRITING/READING. PT HAD SEVERAL EPISODES OF FRUSTRATED BODY LANGUAGE T/O THE DAY INCLUDING THROWING ARMS UP IN AIR, WAVING PEOPLE AWAY, FROWNING, AND RAISING VOICE DURING MISUNDERSTANDINGS. PT WAS UNHAPPY WITH MOST FOOD ON HER TRAY AT MEAL TIMES, AND SEVERAL FOOD REQUESTS WERE SENT TO KITCHEN FOR SUBSTITUTES. AT TIMES, PT WOULD REFUSE ACCUCHEKS AND INSULIN INJECTIONS OR INSIST TO GET HER INSULIN AT DIFFERENT TIMES THAN ORDERED. THERE SEEMS TO BE NO CONSISTENCY TO HER AGREEABILITY OR LACK THERE OF WITH CARE. GUARDIAN, BRAD, CONTACTED ON THE PHONE SEVERAL TIMES FOR SUPPORT WITH CONFLICTS. PT PERSISTENTLY REQUESTED STAFF CALL BRAD, EVEN AFTER MESSAGES WERE LEFT. PT IS CURRENTLY WALKING AROUND ROOM ORGANIZING BELONGINGS, APPEARING RESTLESS. PT STATES SHE IS GOING HOME TOMORROW, HOWEVER, ACCORDING TO PROVIDER NOTES, DC PLANS ARE STILL PENDING. PT WAS EDUCATED ON FIRE SAFETY AND RISK THIS SHIFT. PT NODDED IN UNDERSTANDING. VITALS REVIEWED.
[2022-10-22 18:55] VITALS: BP 131/80
--- NOTE | 2022-10-23 02:23 | NUR ---
PT HAS BEEN HYPER FOCUSED ON THE THOUGHT THAT SHE IS GOING HOME IN THE MORNING. HAS REQUESTED RN & INTERNAL AUDIT MANAGER CONNECT WITH MATERIALS PLANNER MULTIPLE TIMES VIA TRANSLATER LAPTOP IN THE ROOM. PT IS REQUESTING "ALL OF HER PAPERWORK, HER MEDICATIONS AND INFORMATION REGARDING IN HOME HELP". PER TURNTABLE ENGINEER'S NOTES AND MD NOTES DC PLAN CONTINUES TO BE PSYCH IN-PT PLACEMENT UPON DC. PT BELIEVES SHE'S GOING HOME INSTEAD AND THAT SHE'S GOING HOME IN THE MORNING.
--- NOTE | 2022-10-23 04:59 | NUR ---
SHIFT SUMMARY NO ACUTE CHANGES THIS SHIFT. PT AWAKE TIL AFTER MN. EVENTUALLY WENT TO SLEEP AT APPROX 2AM. HAS RESTED QUIETLY WITH EYES CLOSED, RESP EVEN & UNLABORED. COMMUNICATION HAS BEEN THROUGH [employer] & ONLINE PATIENT SERVICE REPRESENTATIVE SERVICES BED IN LOW POSITION, CALL LIGHT WITHIN REACH.
[2022-10-23 08:51] VITALS: BP 153/72
[2022-10-23 08:59] LABS: Bun/Creatinine Ratio 10.8 (12.0-20.0); Calcium, Blood 8.5 mg/dL (8.5-10.1); Creatinine, Blood 0.93 mg/dL (0.40-1.00); Potassium, Blood 3.5 mmol/L (3.5-5.5)
--- NOTE | 2022-10-23 11:26 | NUR ---
Ethics update: Given the documented improvement in the [facility] cognitive evaluation score, and her now lack of elegibility for IP psychiatric facility placement, if she meets the medical stability threshold for discharge, then the guardian needs to be notified of her impending discharge. Her fiduciary agents can then (in the post acute setting) continue to coordinate the [facility] assisted medicaid process.
[2022-10-23 16:10] VITALS: BP 163/92
[2022-10-23 16:50] VITALS: BP 163/92
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
--- NOTE | 2022-10-23 20:07 | NUR ---
SHIFT SUMMARY- PT BECAME MORE AGITATED AT THE END OF THE SHIFT. SHE HAD A FALL (SEE PREV NOTE FOR DETAILS) AFTER THAT SHE WANTED TO GO HOME AND BECAME MORE ANGRY WHEN SHE WAS NOT ABLE TO. BG WAS 92 AT THE TIME OF THE FALL. PT DID NOT EAT ANYTHING HOWEVER BG WAS 219 AT DINNER. CARB COUNT DONE AFTER DINNER, PT RECIEVED 10 UNITS HUMALOG. BG WAS INCREASING AT THE END OF THE SHIFT. METER WAS ALARMING BG WAS UP TO 377 AT THE TIME OF BEDSIDE REPORT. PT UP WALKING IN THE HALLWAY. NIGHT RN AWARE. PT ALERT ORIENTED TO SELF AND INDEPENDENT WITH AMBULATION, SITTER FOR SAFETY, PT HAS VIOLENT OUTBURSTS AT TIMES. PT IS DEAF, PICTURE FRAMER AT THE BEDSIDE FOR SHIFT CHANGE. AWAITING PLACEMENT. PT C/O PAIN THIS EVENING PLACED PAIN CREAM ON HER BACK AND MEDICATED WITH TYLENOL, NO NOTABLE INJURY FROM HER FALL EARLIER.
[2022-10-23 20:17] VITALS: BP 140/85
--- NOTE | 2022-10-24 04:42 | NUR ---
SHIFT SUMMARY PATIENT ALERT, IRRITABLE, FRUSTRATED AT BEGINING OF SHIFT. C/O PAIN TO RIGHT HAND, STATED SHE HURT IT WHEN FELL EARLIER IN DAY. NO APPARENT INJURY NOTED, NO GROSS DEFORMITY, FULL ROM WITHOUT ANY APPARENT DIFFICULTY. REFUSED TYLENOL, STATED SHE WANTS "OTHER PAIN PILL." ON-CALL PROVIDER NOTIFIED AND RECEIVED NEW ORDER FOR PRN NORCO 5/325 1 TAB Q6H PRN, TOLERATED WELL, NO FURTHER C/O PAIN. NOTED IMPROVED BEHAVIOR, PLEASANT, BRIGHT AFFECT, SLEPT WELL THROUGHOUT REMAINDER OF SHIFT. EDUCATED ON FIRE SAFETY AND RISK OF INJURY R/T OXYGEN USE, DENIES SMOKING NOR HAVING ACCESS TO ANY SOURCES OF IGNITION. CONTINUES ON 1:1 FOR PATIENT SAFETY. BED IN LOW POSITION, CALL LIGHT WITHIN REACH.
[2022-10-24 05:02] VITALS: BP 142/79
[2022-10-24 06:35] LABS: Bun/Creatinine Ratio 11.8 (12.0-20.0); Calcium, Blood 8.3 mg/dL (8.5-10.1); Creatinine, Blood 0.85 mg/dL (0.40-1.00); Potassium, Blood 3.6 mmol/L (3.5-5.5)
[2022-10-24 07:36] VITALS: BP 140/72
[2022-10-24 15:27] VITALS: BP 156/86
--- NOTE | 2022-10-24 19:54 | NUR ---
SHIFT SUMMARY- PT HAS HAD BETTER BEHAVIORS TODAY. BG SEEMS WEL MANAGED. PLAN IS TO POSSIBLY DC HOME TOMORROW. PER DR MORENO NOT GOING HOME TODAY BUT MAYBE TOMORROW. THE ORRIGIONAL PLAN WAS A FACILITY, HOWEVER THE FAMILY WILL HAVE TO DO THIS OUT PT, THE PT AGRESSION AND AGGITATION SEEMS TO BE MORE MANAGED, ALTHOUGH SHE STILL REMAINS TO HAVE A 24 HOUR SITTER. TRANSLATER PRESENT IN THE ROOM AT SHIFT CHANGE. BEDSIDE REPORT COMPLETED WITH NIGHT RN. PT SITTING IN BED, CALL LIGHT IN REACH NO S&S OF DISTRESS.
[2022-10-24 20:02] VITALS: BP 127/63
--- NOTE | 2022-10-25 05:29 | NUR ---
SHIFT SUMMARY PRN PAIN MEDICATION GIVEN X1 FOR HAND PAIN WITH POSITIVE EFFECT. DIGITAL DEVELOPER PRESENT UNTIL 1999, ASL COMPUTER COUNSELING SPECIALIST AT BEDSIDE AND AVAILABLE FOR USE. Q1H FIRE SAFETY CHECKS PERFORMED.
[2022-10-25 05:49] VITALS: BP 152/71
[2022-10-25 07:56] VITALS: BP 153/93
[2022-10-25 09:15] LABS: SARS-Cov-2 (COVID-19) PCR, MMC NEGATIVE (NEGATIVE)
[2022-10-25 17:13] VITALS: BP 153/87
--- NOTE | 2022-10-25 17:20 | NUR ---
SHIFT SUMMARY- PT HAD A MEETING TODAY WITH DISCHARGE PLANING, AND LEGAL GUARDIAN WITH SPECIAL DEPUTY SHERIFF JABARI IN THE ROOM WITH THE PT. PT SEEMED TO BE DOIG WELL AFTER THE MEETING. SHE STARTED TALKING THROUGH ASL WITH SOMEONE ON HER TABLET. SHE BECAME UPSET AND REQUESTED HER PRN ZYPREXA. SHE ALSO REQUESTED A PAIN PILL FOR BACK PAIN. MEDICATED WITH NORCO AND ZYPREXA. PT IS SITTING UP AT THE EOB, TALKING TO SOMEONE ON HER TABLET EATING HER DINNER. SHE SEEMS A LITTLE CONGESTED (SHE CRIED A LITTLE WHEN SHE WAS UPSET) THIS SEEMS TO BE RELATER TO HER UPSET FEELINGS.
[2022-10-25 19:40] VITALS: BP 157/76
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
[2022-10-26 08:53] VITALS: BP 165/77
[2022-10-26 16:32] VITALS: BP 158/92
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
[2022-10-26 20:30] VITALS: BP 144/76
--- NOTE | 2022-10-27 03:25 | NUR ---
PATIENT WAS QUITE AGITATED DURING EVENING REPORT. POUNDING THE TABLE, AND POINTING AT MYSELF AND OUTGOING RN. ACCOUNTING REPRESENTATIVE WAS DOING THE BEST SHE COULD TO EXPLAIN PATIENT'S THOUGHTS ABOUT WHAT NEEDED TO BE DONE ABOUT HER BLOOD SUGAR COVERAGE. AFTER ASSURING PATIENT THAT I WOULD LOOK INTO HER CURRENT REGIMEN AND ASSURED HER THAT I WOULD BE BACK WITH HER LONG ACTING INSULIN, THE PATIENT SEEMED TO QUIET DOWN AND RELAX A BIT. AT HS HER CBG WAS 144. 12 UNITS OF GLARGINE INSULIN WAS GIVEN TO PATIENT ALONG WITH HER REGULAR MEDS AND PRN ORDER FOR SEROQUEL. AT THE TIME OF THIS NOTE, THE PATIENT HAS BEEN SLEEPING PEACEFULLY ALL NIGHT. WILL CONTINUE CLOSE MONITORING
[2022-10-27 04:14] VITALS: BP 147/77
[2022-10-27 08:18] VITALS: BP 162/93
[2022-10-27 15:42] VITALS: BP 126/68
--- NOTE | 2022-10-27 15:48 | NUR ---
IGNITION SOURCES DISCUSSED W/ PRODUCT SAFETY PROFESSIONAL AND PT. PRODUCT SAFETY PROFESSIONAL VOCALIZED PT UNDERSTANDING OF NO SMOKING, LIGHTERS, MATCHES, ETC IN HOSPITAL.
--- NOTE | 2022-10-27 18:11 | NUR ---
SHIFT SUMMARY: PT MORE COOPERATIVE AND LESS AGITATED THIS SHIFT. ZYPREA GIVEN PER EMAR WITH MORNING MEDICATIONS. SPORTS PSYCHOLOGIST ARRIVED TO HELP DISCUSSION WITH MEDICATION PASS THIS AM. NO ACUTE EVENTS WITH PT. RECEIVED UPDATE FROM PNEUMATIC TOOL REPAIRER THAT APPEAL FOR D/C WAS DENIED. PLAN FOR PT TO D/C TOMORROW BEFORE NOON. PT RECEIVED 2 PAIN PILLES THIS SHIFT FOR 7/10 PAIN IN R.HAND. UNSURE OF CAUSE OF PAIN. CALL LIGHT IN REACH. WILL CONTINUE TO MONITOR.
[2022-10-27 19:37] VITALS: BP 139/72
--- NOTE | 2022-10-28 | NUR ---
RN NOTE MS PETTY IS DEAF. IN PERSON WELDING TECHNICIAN WAS PRESENT FROM 1900 TO 1999 HRS. ASSESSMENT DONE WITH WELDING TECHNICIAN IN THE ROOM. MS PETTY WAS ANGRY AFTER THE WELDING TECHNICIAN LEFT THAT SHE HAD ONLY RECEIVED 1 UNIT OF FAST ACTING INSULIN PER SLIDING SCALE WITH GLARGINE. WELDING TECHNICIAN SERVICES WAS ACCESSED ON THE LAP TOP. VIA WELDING TECHNICIAN PT WAS ANGRY, BUT WHEN I REPEATADLY ASKED WHAT AMOUNT OF INSULIN SHE WOULD LIKE OR IF SHE WAS INTENDING TO EAT CALORIES SHE REFUSED TO ANSWER, REFUSED TO USE WELDING TECHNICIAN SERVICES. SHE LATER APPOLOGISED FOR HER BEHAVIOUR TO ME AND ASKED ME TO CALL HER DAUGHTER IN LAW BRAD. I CALLED BRAD AND LEFT DISCRETE VM ASKING FOR RETURN CALL BUT HAVE NOT HEARD FROM HER. PT UP INDEPENDENTLY IN THE HALLS EARLIER THIS SHIFT AND IS RESTING IN BED NOW WITH LIGHTS OUT. BED LOW, CALL LIGHT IN REACH.
--- NOTE | 2022-10-28 04:32 | NUR ---
SHIFT SUMMARY SEE PRIOR RN NOTE. MS PETTY WAS ANGRY LAST NIGHT AND REFUSED TO COMMUNICATE VIA LAP TOP VIDEO PLATFORM BUILDER. SHE SAID SHE WAS UPSET ABOUT HER INSULIN DOSE AND WOULD LIKE A HIGHER DOSE OF FAST ACTING INSULIN. SHE SINCE HAS BEEN CALM AND COMMUNICATING WELL VIA WRITTEN BOARD. SHE WROTE THAT SHE WOULD LIKE AN INCREASED INSULIN DOSE. SHE C/O BACK PAIN, DECLINED TYLENOL AND WAS GIVEN NORCO REQUESTED. UP TO BATHROOM INDEPENDENTLY. SITTER AT BEDSIDE. BED LOW, CALL LIGHT IN REACH.
[2022-10-28 04:44] VITALS: BP 155/86
[2022-10-28 07:29] VITALS: BP 158/82
--- NOTE | 2022-10-28 09:00 | NUR ---
INTERPRETOR ON HAND IN ROOM. PT EASILY AGITATED. DENIES PAIN TO ME AT THIS TIME. A/O X3. APPEARS MOR CALM WHEN INTERPRETOR AT BEDSIDE. PT H/R REG, NO MURMER NOTED. PACER NOTED. NO TELE. NO EDEMA NOTED. LUNGS CLEAR, RESP EASY, UNLABORED ON R/A. BT X4 LAST BM YEST PER PT. VOIDS INDEPENDANTLY TO [place]. PT WALKS HALLS REGULARLY, INDEPENDANT. IS DEAF, SO MUST CATCH HER ATTENTION TO MAKE NOTES FOR HER TO FOLLOW OR HAVE INTERPRETOR AVAIL. WILL HAVE INTERPRETOR HERE FOR DISCHARGE AT 1200 AND FAMILY HERE TO PICK HER UP AT 1230 PER PT.
[2022-10-28] MEDS ORDERED: BASAGLAR K100 UNIT/1 SC (10:01)
[2022-10-28] MEDS ORDERED: HUMALOG JU100 UNIT/2 SC (10:01)
[2022-10-28] MEDS ORDERED: POTCHL20ER PO (10:02)
[2022-10-28] MEDS ORDERED: ABILIFY MYCITE10 M2 PO (10:04)
[2022-10-28] MEDS ORDERED: ASPI81CH PO (10:05)
[2022-10-28] MEDS ORDERED: OLAN5 PO (10:06)
[2022-10-28] MEDS ORDERED: SENN187 PO (10:07)
[2022-10-28] MEDS ORDERED: ANALGESIC BALM28 GM TOP (10:09)
--- NOTE | 2022-10-28 12:45 | NUR ---
DISCHARGE REVIEWED WITH PT THROUGH THE INTERPRETOR. PT VERBALIZED UNDERSTANDING MEDS AND INST. MCGILL IN LAW, POA, STATES UNDERSTANDING ALSO. NO IV, NO TELE. PT WALKED TO DOOR WITH CAREGIVER AND AIDE. [id number]
== END 2022-10-28 12:50 | disposition home or self-care (01) | DRG 638 ==
LOC: ER 13:10 → EOR 16:38 → ER 16:38 → PCU 16:38 → MEDS 10-16 15:21 → PCU 10-16 15:21 → MEDS 10-18 17:50 → ENPENDDIS 10-25 17:38 → MEDS 10-28 12:50
PROVIDERS: Family Medicine; Hospitalist; Internal Medicine; Student in an Organized Health Care Education/Training Program; ADMIT Student in an Organized Health Care Education/Training Program
DX: E11.649 Type 2 diabetes mellitus with hypoglycemia without coma (principal); F03.A11 Unspecified dementia, mild, with agitation; I50.22 Chronic systolic (congestive) heart failure; I48.20 Chronic atrial fibrillation, unspecified; F25.0 Schizoaffective disorder, bipolar type; I11.0 Hypertensive heart disease with heart failure; I25.10 Atherosclerotic heart disease of native coronary artery without angina pectoris; H90.5 Unspecified sensorineural hearing loss; F22 Delusional disorders; F17.210 Nicotine dependence, cigarettes, uncomplicated; K59.00 Constipation, unspecified; R41.9 Unspecified symptoms and signs involving cognitive functions and awareness; R82.90 Unspecified abnormal findings in urine; R35.0 Frequency of micturition; R39.15 Urgency of urination; Z20.822 Contact with and (suspected) exposure to COVID-19; M25.531 Pain in right wrist; M25.532 Pain in left wrist; G89.29 Other chronic pain; G25.81 Restless legs syndrome; Z88.4 Allergy status to anesthetic agent; Z91.148 Patient's other noncompliance with medication regimen for other reason; Z79.899 Other long term (current) drug therapy; Z79.82 Long term (current) use of aspirin; Z79.4 Long term (current) use of insulin; I25.2 Old myocardial infarction; Z79.51 Long term (current) use of inhaled steroids; Z79.02 Long term (current) use of antithrombotics/antiplatelets
CPT/HCPCS: 0241U; 36415; 80048; 80053; 81001; 82010; 82803; 82947; 83036; 83735; 85025; 87086; 93005; 93010; 94640; 94664; 94760; 94762; 96372; 96372-59; 96374; 96375; 96376; 97129; 97165; 97530; 99285-25; A9270; G0378; G0480; J1610; J1650; J1815; J2060; J7070; J7799; U0002

== ENCOUNTER 2022-11-03 20:36 | Emergency (ER) | payer OTHER ==
[~2022-11-03] VITALS: Ht 149.9 cm; Wt 59.0 kg
[~2022-11-03 20:36] MED LIST changes: +ABILIFY MYCITE10 M2 PO; +ANALGESIC BALM28 GM TOP; +Acetaminophen325 M1 PO; +Amiodarone HCl200 MG PO; +DILT180 PO; +Diflucan150 MG PO; +FIASP 100100 UNIT/3; +FLUT1DIS5 INH; +GVOKE HYPO1 MG/0.21 IM; +HUMALOG JU100 UNIT/2 SC; +INSULANPEN SC; +NITR.4SL SL; +OLAN5 PO
[2022-11-03 21:16] LABS: BASOPHILS ABSOLUTE AUTO 0.05 K/mm3 (0.00-0.23); BASOPHILS PERCENT AUTO 1 % (0-2); EOSINOPHILS PERCENT AUTO 3 % (0-6); Hematocrit 41.8 % (33.0-51.0); Hemoglobin 12.8 g/dL (11.5-16.0); IMMATURE GRAN ABSOLUTE AUTO 0.02 K/mm3 (0.00-0.10); IMMATURE GRAN PERCENT AUTO 0 % (0-1); LYMPHOCYTES ABSOLUTE AUTO 2.13 K/mm3 (0.84-5.20); LYMPHOCYTES PERCENT AUTO 32 % (21-46); MONOCYTES ABSOLUTE AUTO 0.75 K/mm3 (0.16-1.47); MONOCYTES PERCENT AUTO 11 % (4-13); Mean Corpuscular HGB 28.2 pg (26.0-34.0); Mean Corpuscular HGB Conc 30.6 g/dL (31.5-36.5); Mean Corpuscular Volume 92 fL (80-100); Mean Platelet Volume 9.9 fL (9.1-12.4); NEUTROPHILS ABSOLUTE AUTO 3.54 K/mm3 (1.96-9.15); NEUTROPHILS PERCENT AUTO 53 % (41-73); Platelet Count 266 K/mm3 (150-400); RDW Coefficient Variation 13.9 % (11.7-14.2); RDW Standard Deviation 47.1 fL (35.1-46.3); Red Blood Cell Count 4.54 M/mm3 (3.80-5.20); White Blood Cell Count 6.69 K/mm3 (4.00-11.30)
[2022-11-03 21:21] LABS: Albumin, Blood 3.7 g/dL (3.4-5.0); Albumin/Globulin Ratio 1.1 (0.8-1.8); Bilirubin, Total 0.2 mg/dL (0.1-1.0); Bun/Creatinine Ratio 11.1 (12.0-20.0); Calcium, Blood 8.3 mg/dL (8.5-10.1); Creatinine, Blood 0.99 mg/dL (0.40-1.00); Globulin, Blood 3.4 g/dL (2.2-4.0); Potassium, Blood 4.9 mmol/L (3.5-5.5); Total Protein, Blood 7.1 g/dL (6.4-8.2)
[2022-11-04 00:45] VITALS: BP 160/98
== END 2022-11-04 01:15 | disposition home or self-care (01) ==
LOC: ER 20:36
PROVIDERS: Emergency Medicine
DX: R07.9 Chest pain, unspecified (principal); R00.2 Palpitations; I48.91 Unspecified atrial fibrillation; J44.9 Chronic obstructive pulmonary disease, unspecified; I11.0 Hypertensive heart disease with heart failure; I50.9 Heart failure, unspecified; E11.9 Type 2 diabetes mellitus without complications; F17.200 Nicotine dependence, unspecified, uncomplicated; F99 Mental disorder, not otherwise specified; Z95.810 Presence of automatic (implantable) cardiac defibrillator; Z79.899 Other long term (current) drug therapy; Z79.01 Long term (current) use of anticoagulants; Z79.4 Long term (current) use of insulin
CPT/HCPCS: 80053; 82947; 84484; 85025; 93005; 93010; 99285-25

== ENCOUNTER 2023-01-23 13:19 | Observation (INO) | payer MEDICARE, OTHER ==
[~2023-01-23] VITALS: Ht 149.9 cm; Wt 68.0 kg
[2023-01-23] MEDS ORDERED: GALA4 PO (14:37)
[2023-01-23] MEDS ORDERED: QUET25 PO (14:37)
[2023-01-23 16:36] LABS: BASOPHILS ABSOLUTE AUTO 0.08 K/mm3 (0.00-0.23); BASOPHILS PERCENT AUTO 1 % (0-2); EOSINOPHILS ABSOLUTE AUTO 0.11 K/mm3 (0.00-0.68); EOSINOPHILS PERCENT AUTO 1 % (0-6); Hematocrit 47.3 % (33.0-51.0); Hemoglobin 14.7 g/dL (11.5-16.0); IMMATURE GRAN ABSOLUTE AUTO 0.01 K/mm3 (0.00-0.10); IMMATURE GRAN PERCENT AUTO 0 % (0-1); LYMPHOCYTES ABSOLUTE AUTO 2.39 K/mm3 (0.84-5.20); LYMPHOCYTES PERCENT AUTO 31 % (21-46); MONOCYTES ABSOLUTE AUTO 0.87 K/mm3 (0.16-1.47); MONOCYTES PERCENT AUTO 11 % (4-13); Mean Corpuscular HGB 28.2 pg (26.0-34.0); Mean Corpuscular HGB Conc 31.1 g/dL (31.5-36.5); Mean Corpuscular Volume 91 fL (80-100); Mean Platelet Volume 10.6 fL (9.1-12.4); NEUTROPHILS ABSOLUTE AUTO 4.38 K/mm3 (1.96-9.15); NEUTROPHILS PERCENT AUTO 56 % (41-73); Platelet Count 228 K/mm3 (150-400); RDW Coefficient Variation 13.2 % (11.7-14.2); RDW Standard Deviation 44.2 fL (35.1-46.3); Red Blood Cell Count 5.22 M/mm3 (3.80-5.20); White Blood Cell Count 7.84 K/mm3 (4.00-11.30)
[2023-01-23 16:40] LABS: U Amphetamine Screen Not Detected; U Barbituate Screen Not Detected; U Benzodiazapine Screen Not Detected; U Buprenorphine Screen Not Detected; U Cannabinoids Screen Not Detected; U Cocaine Screen Not Detected; U Methadone Screen Not Detected; U Methamphetamine Screen Not Detected; U Opiates Screen Not Detected; U Oxycodone Screen Not Detected; U Phencyclidine Screen Not Detected; U Propoxyphene Screen Not Detected
[2023-01-23 17:03] LABS: Source, Urine Clean Catch
[2023-01-23 17:05] LABS: Acetaminophen, Random <2.0 ug/mL (10.0-30.0); Alanine Aminotransfer (ALT/SGP 34 U/L (12-78); Albumin/Globulin Ratio 1.2 (0.8-1.8); Alk Phos 78 U/L (50-136); Anion Gap 5 mmol/L (6-16); Aspartate Aminotrans (AST/SGOT 26 U/L (12-37); Bilirubin, Total 0.5 mg/dL (0.1-1.0); Blood Urea Nitrogen 14 mg/dL (8-24); Bun/Creatinine Ratio 12.1 (12.0-20.0); CO2, Blood 31 mmol/L (21-32); Chloride, Blood 105 mmol/L (98-108); Creatinine, Blood 1.16 mg/dL (0.40-1.00); Ethanol (Alcohol), Blood, Med <3 mg/dL; Globulin, Blood 3.4 g/dL (2.2-4.0); Glomerular Filtration Rate 55 (60-); Glucose, Blood 203 mg/dL (70-99); Potassium, Blood 3.7 mmol/L (3.5-5.5); Salicylate <1.7 mg/dL (2.8-20.0); Sodium, Blood 141 mmol/L (136-145); Total Protein, Blood 7.4 g/dL (6.4-8.2)
[2023-01-23 17:11] LABS: Appearance, Urine Clear (Clear); Bilirubin, Urine Neg (Neg); Blood, Urine Neg (Neg); Color, Urine Yellow (P-Yellow); Glucose Qualitative, Urine Neg (Neg); Ketones, Urine Neg (Neg); Leukocyte Esterase, Urine Neg (Neg); Nitrite, Urine Neg (Neg); Protein, Urine 1+ (Neg); Urobilinogen, Urine NORM (Normal); pH, Urine 6.5 (5.0-8.0)
[2023-01-23] MEDS ORDERED: CARVEDILOL25 M9 PO (18:07)
[2023-01-23] MEDS ORDERED: ZOLP5 PO (18:07)
[2023-01-23] MEDS ORDERED: ROPINIROLE HCL0.5 MG (18:08)
[2023-01-23] MEDS ORDERED: Potassium Chlo20 ME1 PO (18:08)
[2023-01-23] MEDS ORDERED: SEMGLEE (Y100 UNIT/2 SC (18:10)
[2023-01-24 08:05] VITALS: BP 178/92
[2023-01-24 15:21] LABS: Glucose, Blood 490 mg/dL (70-99)
== END 2023-01-24 21:37 | disposition home or self-care (01) ==
LOC: ER 13:19 → EOR 13:20
PROVIDERS: ADMIT Emergency Medicine
DX: F25.0 Schizoaffective disorder, bipolar type (principal); Z87.891 Personal history of nicotine dependence; F41.9 Anxiety disorder, unspecified; I25.2 Old myocardial infarction; E11.9 Type 2 diabetes mellitus without complications; I25.10 Atherosclerotic heart disease of native coronary artery without angina pectoris; E78.00 Pure hypercholesterolemia, unspecified; I50.22 Chronic systolic (congestive) heart failure; I11.0 Hypertensive heart disease with heart failure; Z79.4 Long term (current) use of insulin
CPT/HCPCS: 36415; 80053; 81025; 82947; 85025; 99285; A9270; G0378; G0480; J1815

== ENCOUNTER 2023-04-03 17:26 | Emergency (ER) | payer OTHER ==
[~2023-04-03] VITALS: Ht 147.3 cm; Wt 52.2 kg
[~2023-04-03 17:26] MED LIST changes: +CARVEDILOL25 M9 PO; +GALA4 PO; +Potassium Chlo20 ME1 PO; +QUET25 PO; +ROPINIROLE HCL0.5 MG; +SEMGLEE (Y100 UNIT/2 SC
[2023-04-03 18:27] LABS: BASOPHILS ABSOLUTE AUTO 0.05 K/mm3 (0.00-0.23); BASOPHILS PERCENT AUTO 1 % (0-2); EOSINOPHILS PERCENT AUTO 3 % (0-6); Hematocrit 41.2 % (33.0-51.0); Hemoglobin 12.9 g/dL (11.5-16.0); IMMATURE GRAN ABSOLUTE AUTO 0.01 K/mm3 (0.00-0.10); IMMATURE GRAN PERCENT AUTO 0 % (0-1); LYMPHOCYTES ABSOLUTE AUTO 1.84 K/mm3 (0.84-5.20); LYMPHOCYTES PERCENT AUTO 29 % (21-46); MONOCYTES ABSOLUTE AUTO 0.83 K/mm3 (0.16-1.47); MONOCYTES PERCENT AUTO 13 % (4-13); Mean Corpuscular HGB 28.3 pg (26.0-34.0); Mean Corpuscular HGB Conc 31.3 g/dL (31.5-36.5); Mean Corpuscular Volume 90 fL (80-100); Mean Platelet Volume 9.7 fL (9.1-12.4); NEUTROPHILS ABSOLUTE AUTO 3.43 K/mm3 (1.96-9.15); NEUTROPHILS PERCENT AUTO 54 % (41-73); Platelet Count 298 K/mm3 (150-400); RDW Coefficient Variation 14.2 % (11.7-14.2); RDW Standard Deviation 46.8 fL (35.1-46.3); Red Blood Cell Count 4.56 M/mm3 (3.80-5.20); White Blood Cell Count 6.36 K/mm3 (4.00-11.30)
[2023-04-03 18:56] LABS: Bun/Creatinine Ratio 13.7 (12.0-20.0); Calcium, Blood 8.9 mg/dL (8.5-10.1); Creatinine, Blood 0.88 mg/dL (0.40-1.00); Magnesium, Blood 2.3 mg/dL (1.6-2.4); Potassium, Blood 3.2 mmol/L (3.5-5.5)
[2023-04-03 20:34] VITALS: BP 180/81
[2023-04-04] MEDS ORDERED: POTCHL20ER PO (02:12)
== END 2023-04-03 20:35 | disposition home or self-care (01) ==
LOC: ER 17:26
PROVIDERS: Student in an Organized Health Care Education/Training Program
DX: R07.9 Chest pain, unspecified (principal); E87.6 Hypokalemia; E11.9 Type 2 diabetes mellitus without complications; I11.0 Hypertensive heart disease with heart failure; I50.20 Unspecified systolic (congestive) heart failure; I25.2 Old myocardial infarction; H91.90 Unspecified hearing loss, unspecified ear; I48.91 Unspecified atrial fibrillation; I25.10 Atherosclerotic heart disease of native coronary artery without angina pectoris; E78.00 Pure hypercholesterolemia, unspecified; Z95.810 Presence of automatic (implantable) cardiac defibrillator; Z87.891 Personal history of nicotine dependence; Z88.5 Allergy status to narcotic agent; Z88.4 Allergy status to anesthetic agent; Z88.8 Allergy status to other drugs, medicaments and biological substances; Z79.4 Long term (current) use of insulin; Z79.899 Other long term (current) drug therapy
CPT/HCPCS: 71045; 80048; 82947; 83735; 84484; 85025; 93005; 93010; 99284-25; A9270

== ENCOUNTER 2023-04-11 10:13 | Emergency (ER) | payer OTHER ==
[~2023-04-11] VITALS: Ht 152.4 cm; Wt 72.6 kg
[2023-04-11 11:21] LABS: BASOPHILS ABSOLUTE AUTO 0.04 K/mm3 (0.00-0.23); BASOPHILS PERCENT AUTO 1 % (0-2); EOSINOPHILS ABSOLUTE AUTO 0.11 K/mm3 (0.00-0.68); EOSINOPHILS PERCENT AUTO 1 % (0-6); Hemoglobin 12.5 g/dL (11.5-16.0); IMMATURE GRAN ABSOLUTE AUTO 0.02 K/mm3 (0.00-0.10); IMMATURE GRAN PERCENT AUTO 0 % (0-1); LYMPHOCYTES ABSOLUTE AUTO 1.02 K/mm3 (0.84-5.20); LYMPHOCYTES PERCENT AUTO 13 % (21-46); MONOCYTES ABSOLUTE AUTO 0.69 K/mm3 (0.16-1.47); MONOCYTES PERCENT AUTO 9 % (4-13); Mean Corpuscular HGB Conc 31.3 g/dL (31.5-36.5); Mean Corpuscular Volume 90 fL (80-100); Mean Platelet Volume 9.6 fL (9.1-12.4); NEUTROPHILS ABSOLUTE AUTO 6.09 K/mm3 (1.96-9.15); NEUTROPHILS PERCENT AUTO 76 % (41-73); Platelet Count 256 K/mm3 (150-400); RDW Coefficient Variation 13.9 % (11.7-14.2); Red Blood Cell Count 4.46 M/mm3 (3.80-5.20); White Blood Cell Count 7.97 K/mm3 (4.00-11.30)
[2023-04-11 11:43] LABS: Albumin, Blood 3.7 g/dL (3.4-5.0); Bilirubin, Total 0.3 mg/dL (0.1-1.0); Bun/Creatinine Ratio 11.4 (12.0-20.0); Calcium, Blood 8.9 mg/dL (8.5-10.1); Creatinine, Blood 0.88 mg/dL (0.40-1.00); Globulin, Blood 3.7 g/dL (2.2-4.0); Potassium, Blood 3.1 mmol/L (3.5-5.5); Total Protein, Blood 7.4 g/dL (6.4-8.2)
[2023-04-11 14:35] LABS: Source, Urine Clean Catch
[2023-04-11 14:38] LABS: Bilirubin, Urine Neg (Neg); Blood, Urine 1+ (Neg); Glucose Qualitative, Urine 3+ (Neg); Ketones, Urine Neg (Neg); Leukocyte Esterase, Urine Neg (Neg); Nitrite, Urine Neg (Neg); Protein, Urine Neg (Neg); Specific Gravity, Urine 1.005 (1.003-1.022); Urobilinogen, Urine NORM (Normal); pH, Urine 6.5 (5.0-8.0)
[2023-04-11 14:45] VITALS: BP 138/98
[2023-04-11 14:49] LABS: Appearance, Urine Clear (Clear); Color, Urine Yellow (P-Yellow)
[2023-04-11 14:51] LABS: Bacteria Few /hpf; Squamous Epithelial Cells Few /hpf (Few); White Blood Cells, Urine 0-2 /hpf (0-5)
== END 2023-04-11 16:50 | disposition home or self-care (01) ==
LOC: ER 10:13
PROVIDERS: Physician Assistant
DX: R07.9 Chest pain, unspecified (principal); Z87.891 Personal history of nicotine dependence
CPT/HCPCS: 71046; 80053; 81001; 82947; 83690; 84484; 85025; 93005; 93010; 99284-25

== ENCOUNTER 2023-04-30 15:20 | Emergency (ER) | payer OTHER ==
[~2023-04-30] VITALS: Ht 149.9 cm; Wt 62.1 kg
[2023-04-30 15:55] LABS: BASOPHILS ABSOLUTE AUTO 0.05 K/mm3 (0.00-0.23); BASOPHILS PERCENT AUTO 1 % (0-2); EOSINOPHILS ABSOLUTE AUTO 0.12 K/mm3 (0.00-0.68); EOSINOPHILS PERCENT AUTO 2 % (0-6); Hematocrit 40.5 % (33.0-51.0); Hemoglobin 12.7 g/dL (11.5-16.0); IMMATURE GRAN ABSOLUTE AUTO 0.03 K/mm3 (0.00-0.10); IMMATURE GRAN PERCENT AUTO 0 % (0-1); LYMPHOCYTES ABSOLUTE AUTO 1.03 K/mm3 (0.84-5.20); LYMPHOCYTES PERCENT AUTO 14 % (21-46); MONOCYTES ABSOLUTE AUTO 0.52 K/mm3 (0.16-1.47); MONOCYTES PERCENT AUTO 7 % (4-13); Mean Corpuscular HGB Conc 31.4 g/dL (31.5-36.5); Mean Corpuscular Volume 89 fL (80-100); Mean Platelet Volume 9.3 fL (9.1-12.4); NEUTROPHILS ABSOLUTE AUTO 5.69 K/mm3 (1.96-9.15); NEUTROPHILS PERCENT AUTO 77 % (41-73); Platelet Count 307 K/mm3 (150-400); RDW Coefficient Variation 13.9 % (11.7-14.2); RDW Standard Deviation 45.7 fL (35.1-46.3); Red Blood Cell Count 4.54 M/mm3 (3.80-5.20); White Blood Cell Count 7.44 K/mm3 (4.00-11.30)
[2023-04-30 16:12] LABS: Albumin, Blood 3.6 g/dL (3.4-5.0); Bilirubin, Total 0.4 mg/dL (0.1-1.0); Bun/Creatinine Ratio 12.4 (12.0-20.0); Calcium, Blood 8.7 mg/dL (8.5-10.1); Creatinine, Blood 0.89 mg/dL (0.40-1.00); Globulin, Blood 3.5 g/dL (2.2-4.0); Potassium, Blood 3.9 mmol/L (3.5-5.5); Total Protein, Blood 7.1 g/dL (6.4-8.2)
[2023-04-30 18:35] VITALS: BP 163/87
== END 2023-04-30 18:43 | disposition home or self-care (01) ==
LOC: ER 15:20
PROVIDERS: Emergency Medicine
DX: R07.89 Other chest pain (principal); F41.9 Anxiety disorder, unspecified; F32.A Depression, unspecified; I25.2 Old myocardial infarction; H91.90 Unspecified hearing loss, unspecified ear; E11.9 Type 2 diabetes mellitus without complications; I11.0 Hypertensive heart disease with heart failure; I50.20 Unspecified systolic (congestive) heart failure; I48.91 Unspecified atrial fibrillation; I25.10 Atherosclerotic heart disease of native coronary artery without angina pectoris; E78.00 Pure hypercholesterolemia, unspecified; Z95.810 Presence of automatic (implantable) cardiac defibrillator; Z88.8 Allergy status to other drugs, medicaments and biological substances; Z88.4 Allergy status to anesthetic agent; Z88.5 Allergy status to narcotic agent; Z79.899 Other long term (current) drug therapy; Z79.4 Long term (current) use of insulin; Z87.891 Personal history of nicotine dependence
CPT/HCPCS: 71045; 80053; 84484; 85025; 93005; 93010; 99285-25